=== PATIENT | male | born 1935 | race Caucasian/White ===

== ENCOUNTER → 2017-06-20 | Outpatient (CLI) | payer OTHER ==
[~2017-06-20] MED LIST: ATEN50TA8 PO; CMD5 PO; PRLSR20 PO; ZNTT/150 PO
[2017-06-20 09:46] LABS: BASO % 0.8 %; BASO ABS # 0.04 K/uL (0-0.2); EOS % 4.6 %; EOS ABS # 0.23 K/uL (0-0.5); HEMATOCRIT 41.1 % (42-52); HEMOGLOBIN 13.9 g/dL (14.0-18.0); IG# 0.01 K/uL (0.00-0.02); LYMPH % 33.8 %; LYMPH ABS # 1.69 K/uL (1.2-3.4); MEAN CELL VOLUME 93.2 fL (80-100); MEAN CORPUSCULAR HEMOGLOBIN 31.5 pg (25-34); MEAN CORPUSCULAR HGB CONC 33.8 g/dl (32-36); MEAN PLATELET VOLUME 11.1 fL (7.4-10.4); MONO % 10.6 %; MONO ABS # 0.53 K/uL (0.11-0.59); PLATELET COUNT 147 K/uL (130-400); RED CELL DISTRIBUTION WIDTH CV 12.9 % (11.5-14.5)
[2017-06-20 10:13] LABS: BLOOD UREA NITROGEN 26 mg/dl (7-18); CALCIUM 9.4 mg/dl (8.5-10.1); CARBON DIOXIDE 33 mmol/L (21-32); CHOLESTEROL 189 mg/dl (0-200); CREATININE 1.13 mg/dl (0.60-1.40); GLUCOSE 87 mg/dl (70-99); POTASSIUM 3.7 mmol/L (3.5-5.1); SODIUM 142 mmol/L (136-145)
[2017-06-20 10:23] LABS: LDL CHOLESTEROL CALCULATED 120 mg/dl
== END | disposition home or self-care (01) ==
LOC: C.LAB1850 08:35
PROVIDERS: ATTEND Nurse Practitioner Adult Health
DX: E78.00 Pure hypercholesterolemia, unspecified (principal); I48.91 Unspecified atrial fibrillation; I10 Essential (primary) hypertension; D64.9 Anemia, unspecified; K59.00 Constipation, unspecified

== ENCOUNTER 2022-09-13 09:09 | Inpatient (IN) ==
--- NOTE | 2022-09-13 09:40 | Emergency Department Note ---
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 MEDICAL DECISION MAKING: This is a 86-year-old male who presents to the ED from home where he lives with his brother. He apparently has some chronic mild confusion. The patient's complaint is that of pedal edema. Per the nurse who took report from EMS states that he was sent in for some shortness of breath, increased difficulty getting around and some increasing confusion. No other specific complaints. He was little hypothermic when he came in and a bear hugger was placed by the nursing staff. The patient's exam reveals no distress. Clear lung sounds. Speech is somewhat difficult to understand although does answer appropriately. He does have some pedal edema in his lower extremities that appear to be chronic. No significant pain. No obvious infection. Abdomen soft and nontender. Initial heart rate was 132 with a monitor showing about 120s to 130s with a twelve-lead EKG showing atrial fibrillation. The patient does have a pacemaker. He appears to chronically on warfarin. He is also on atenolol. Initial blood pressure was a little low in the 90 systolic range. Uncertain if he is taking his medication as prescribed. Uncertain if he is eating or drinking well. He states that he lives with his brother, however I spoke with his son and the son states that the patient lives with him. The patient's son was worried about sleeping more than usual, decreased oral intake and a little more confused since starting on a diuretic for his pedal edema. According to the PCP note, it appears the patient has been on the diuretic for at least a month. The BUN is 58 and creatinine is 2.3. This is above his normal baseline. Bilirubin is elevated 6.8. This is also well above his normal baseline around 1.9. Test was negative. Urine does not show obvious infection. Chest x-ray was negative for acute disease. White blood cell count is elevated at 22. Chest x-ray did not show acute process. CT scan of the brain was negative for acute disease. CT scan of the abdomen and pelvis suggest metastatic liver disease into the lungs. The patient and family were told the results. The patient will be seen by the hospitalist for further evaluation and care. He was treated with 2 L normal saline IV. His heart rate remained tachycardic with atrial fibrillation in the 120 range. Family states that he did not take any of his medication today. Saturations are good at 100%. He is afebrile. He was empirically given IV Zosyn for possible infection primarily secondary to the elevated white blood cell count. His abdomen is soft and nontender. The patient was given Lopressor 5 mg IV x2. Will be seen by the hospitalist for further evaluation and care. Triage Nursing notes reviewed. Vital Signs: reviewed Prior /Outside records reviewed: PCP visit from 08/24/2022 shows history of hypertension, high cholesterol, A-fib and lower extremity edema. Per that note, the patient is on warfarin and atenolol. Differential diagnosis: Differential includes dehydration, electrolyte abnormality, infection, pneumonia, CA, arrhythmia, other. Diagnostics, as interpreted by me: 12 lead ECG: Atrial fibrillation at a rate of 121. No ST elevation. No PVCs. Normal QTc. Cardiac Monitoring ordered: Atrial fibrillation in the 120 Medical decision rules: none Imaging studies: Chest x-ray: No acute disease. CT scan of the brain: No intracranial hemorrhage. Procedures: none. Critical care: none. HPI: See MDM above. PAST MEDICAL HISTORY: See Below PAST SURGICAL HISTORY: See Below SOCIAL HISTORY: See Below HOME MEDICATIONS: See Below ALLERGIES: See Below VITALS: See Below PHYSICAL EXAMINATION: See MDM for positive findings otherwise unremarkable. CONSTITUTIONAL/VITAL SIGNS: Reviewed GENERAL:done as appropriate INTEGUMENTARY: done as appropriate HEAD: done as appropriate EYES: done as appropriate RESPIRATORY: done as appropriate CARDIOVASCULAR:done as appropriate GI/ABDOMEN:done as appropriate EXTREMITIES: done as appropriate NEUROLOGICAL: done as appropriate PSYCHIATRIC:done as appropriate MUSCULOSKELETAL:done as appropriate TRIAGE NURSING DOCUMENTATION REVIEWED. Past Med/Surg History Medical History Hip fracture, intertrochanteric (07/09/13) Lipoma of abdominal wall Surgical History S/P cardiac pacemaker procedure S/P inguinal hernia repair Family History Brother Cardiac disorder Mother Hypertension Denies family history of Ovarian cancer Prostate cancer Myocardial infarction Breast cancer Colorectal cancer Social History Smoking Status: Former smoker Hx Alcohol Use: No Hx Substance Use: No Preferred Language: Chilean Communication Ability: Effective Visual Impairment: No Limitations Hearing Ability: Normal Gear Room Keeper Required: No Beliefs That Will Affect Care: None marital status: / Current Living Situation: Alone current occupational status: retired Feels Safe at Home: Yes Childhood Exposure to Second-Hand Smoke: No during the past year weight has: remained stable Dental Care, Regularly: No Physical Activity Frequency: 5-6 Times per Week Physical Activity Frequency Comment: walks almost every day. Seatbelt Use: always Sunscreen Use: No Assistive Devices: None Allergies Allergies Allergy/AdvReac Type Severity Reaction Status Date / Time No Known Allergies Allergy Verified 09/13/22 11:41 Home Meds Home Medications Medication Instructions Recorded Confirmed psyllium husk (with sugar) 3 1 tbsp PO DAILY PRN Constipation 08/24/22 09/13/22 gram/7 gram oral powder (Metamucil (with sugar)) triamterene 37.5 1 tab PO DAILY 08/24/22 09/13/22 mg-hydrochlorothiazide 25 mg tablet latanoprost 0.005 % eye drops 1 drp ophthalmic (eye) HS 09/13/22 09/13/22 Previous Rx's Medication Instructions Recorded atenolol 50 mg tablet 50 mg PO DAILY #90 tabs 05/06/22 apixaban 2.5 mg tablet (Eliquis) 2.5 mg PO BID #180 tabs 09/08/22 Results & Data (ED) Vital Signs Vital Signs - 24 hr 09/13/22 09:36 09/13/22 09:54 09/13/22 09:54 Temperature 35.6 C L Temperature Source Axillary Pulse Rate 132 H 129 H Pulse Rate from SpO2 Sensor Pulse Strength Strong Respiratory Rate 22 Blood Pressure 93/66 L Blood Pressure Mean 75 Blood Pressure Position Lying Pulse Oximetry 100 Oxygen Delivery Method Room Air Room Air Sepsis Recent Fever Within 48 Hours No Sepsis New/Unexplained Change in Mental Status Yes Sepsis Action Taken by Nursing Physician Notified 09/13/22 09:54 09/13/22 09:54 09/13/22 10:32 Temperature Temperature Source Oral Pulse Rate 131 H Pulse Rate from SpO2 Sensor Pulse Strength Respiratory Rate Blood Pressure 113/84 Blood Pressure Mean Blood Pressure Position Pulse Oximetry Oxygen Delivery Method Room Air Sepsis Recent Fever Within 48 Hours Sepsis New/Unexplained Change in Mental Status Sepsis Action Taken by Nursing 09/13/22 09:33 09/13/22 09:49 09/13/22 09:49 Temperature Temperature Source Pulse Rate 124 H 132 H Pulse Rate from SpO2 Sensor Pulse Strength Respiratory Rate 24 23 Blood Pressure 93/66 L Blood Pressure Mean 75 Blood Pressure Position Pulse Oximetry 95 Oxygen Delivery Method Sepsis Recent Fever Within 48 Hours Sepsis New/Unexplained Change in Mental Status Sepsis Action Taken by Nursing 09/13/22 10:00 09/13/22 10:01 09/13/22 10:01 Temperature Temperature Source Pulse Rate 128 H 117 H Pulse Rate from SpO2 Sensor Pulse Strength Respiratory Rate 17 19 Blood Pressure 113/84 Blood Pressure Mean 93 Blood Pressure Position Pulse Oximetry 94 Oxygen Delivery Method Sepsis Recent Fever Within 48 Hours Sepsis New/Unexplained Change in Mental Status Sepsis Action Taken by Nursing 09/13/22 10:30 09/13/22 13:39 09/13/22 10:43 Temperature Temperature Source Pulse Rate 119 H 130 H Pulse Rate from SpO2 Sensor 147 H Pulse Strength Respiratory Rate 17 Blood Pressure 99/56 L Blood Pressure Mean 70 Blood Pressure Position Pulse Oximetry 97 Oxygen Delivery Method Room Air Sepsis Recent Fever Within 48 Hours Sepsis New/Unexplained Change in Mental Status Sepsis Action Taken by Nursing 09/13/22 10:43 09/13/22 11:00 09/13/22 11:01 Temperature Temperature Source Pulse Rate 124 H 126 H Pulse Rate from SpO2 Sensor Pulse Strength Respiratory Rate 19 27 H Blood Pressure 98/65 L Blood Pressure Mean 76 Blood Pressure Position Pulse Oximetry Oxygen Delivery Method Sepsis Recent Fever Within 48 Hours Sepsis New/Unexplained Change in Mental Status Sepsis Action Taken by Nursing 09/13/22 11:01 09/13/22 11:30 09/13/22 11:30 Temperature Temperature Source Pulse Rate 135 H 109 H Pulse Rate from SpO2 Sensor Pulse Strength Respiratory Rate 26 H 20 Blood Pressure 111/74 Blood Pressure Mean 86 Blood Pressure Position Pulse Oximetry Oxygen Delivery Method Sepsis Recent Fever Within 48 Hours Sepsis New/Unexplained Change in Mental Status Sepsis Action Taken by Nursing 09/13/22 12:00 09/13/22 12:00 09/13/22 12:30 Temperature Temperature Source Pulse Rate 116 H 115 H Pulse Rate from SpO2 Sensor Pulse Strength Respiratory Rate 19 25 H Blood Pressure 96/65 L Blood Pressure Mean 75 Blood Pressure Position Pulse Oximetry Oxygen Delivery Method Sepsis Recent Fever Within 48 Hours Sepsis New/Unexplained Change in Mental Status Sepsis Action Taken by Nursing 09/13/22 12:31 09/13/22 12:31 09/13/22 13:00 Temperature Temperature Source Pulse Rate 126 H 117 H Pulse Rate from SpO2 Sensor Pulse Strength Respiratory Rate 19 19 Blood Pressure 89/40 L Blood Pressure Mean 56 Blood Pressure Position Pulse Oximetry Oxygen Delivery Method Sepsis Recent Fever Within 48 Hours Sepsis New/Unexplained Change in Mental Status Sepsis Action Taken by Nursing 09/13/22 13:01 09/13/22 13:01 09/13/22 13:30 Temperature Temperature Source Pulse Rate 121 H 107 H Pulse Rate from SpO2 Sensor Pulse Strength Respiratory Rate 23 23 Blood Pressure 98/72 L Blood Pressure Mean 80 Blood Pressure Position Pulse Oximetry Oxygen Delivery Method Sepsis Recent Fever Within 48 Hours Sepsis New/Unexplained Change in Mental Status Sepsis Action Taken by Nursing 09/13/22 13:31 09/13/22 13:31 Temperature Temperature Source Pulse Rate 110 H Pulse Rate from SpO2 Sensor Pulse Strength Respiratory Rate Blood Pressure 90/60 L Blood Pressure Mean 70 Blood Pressure Position Pulse Oximetry 100 Oxygen Delivery Method Sepsis Recent Fever Within 48 Hours Sepsis New/Unexplained Change in Mental Status Sepsis Action Taken by Nursing Laboratory Data 09/13/22 12:39 09/13/22 10:11 Lab Results 09/13/22 09/13/22 09/13/22 Range/Units 09:31 10:11 10:11 WBC Cancelled RBC Cancelled Hgb Cancelled Hct Cancelled MCV Cancelled MCH Cancelled MCHC Cancelled RDW Std Deviation Cancelled RDW Coeff of Fior Cancelled Plt Count Cancelled MPV Cancelled Immature Gran % (Auto) Cancelled Neut % (Auto) Cancelled Lymph % (Auto) Cancelled Dupage % (Auto) Cancelled Eos % (Auto) Cancelled Baso % (Auto) Cancelled Neut # (Auto) Cancelled Lymph # (Auto) Cancelled Dup[place] # (Auto) Cancelled Eos # (Auto) Cancelled Baso # (Auto) Cancelled Immature Gran # (Auto) Cancelled Absolute Nucleated RBC Cancelled Nucleated RBC % (auto) Cancelled Neutrophils % (Manual) Cancelled Band Neutrophils % Cancelled Lymphocytes % (Manual) Cancelled Prolymphocyte % Cancelled Reactive Lymphs % (Man) Cancelled Monocytes % (Manual) Cancelled Eosinophils % (Manual) Cancelled Basophils % (Manual) Cancelled Metamyelocytes % (Man) Cancelled Myelocytes % (Man) Cancelled Promyelocytes % (Man) Cancelled Blast Cells % (Manual) Cancelled Plasma Cell % (Manual) Cancelled Other Cells % Cancelled Nucleated RBC % Cancelled Neutrophils # (Manual) Cancelled Band Neutrophils # Cancelled Total Absolute Neuts Cancelled Lymphocytes # (Manual) Cancelled Prolymphocyte # Cancelled Reactive Lymphs # Cancelled Total Abs Lymphocytes Cancelled Monocytes # (Manual) Cancelled Eosinophils # (Manual) Cancelled Basophils # (Manual) Cancelled Metamyelocytes # (Man) Cancelled Myelocytes # (Manual) Cancelled Promyelocytes # (Man) Cancelled Blast Cells # (Man) Cancelled Plasma Cell # (Manual) Cancelled Other Cells # Cancelled Nucleated RBCs # (Man) Cancelled Hypersegmented Neuts Cancelled Hyposegmented Neuts Cancelled Hypogranular Neuts Cancelled Large Granular Lymphs Cancelled # Lrg Granular Lymphs Cancelled Hairy Cells Cancelled Smudge Cells Cancelled Toxic Granulation Cancelled Toxic Vacuolation Cancelled Dohle Bodies Cancelled Mandeep Rods Cancelled Platelet Estimate Cancelled Hypogranular Platelets Cancelled Giant Platelets Cancelled Platelet Satelliting Cancelled RBC Morphology Cancelled Polychromasia Cancelled Hypochromasia Cancelled Poikilocytosis Cancelled Basophilic Stippling Cancelled Anisocytosis Cancelled Microcytosis Cancelled Macrocytosis Cancelled Spherocytes Cancelled Pappenheimer Bodies Cancelled Sickle Cells Cancelled Target Cells Cancelled Tear Drop Cells Cancelled Ovalocytes Cancelled Stomatocytes Cancelled Hoff-Hartselle Bodies Cancelled Echinocytes Cancelled Acanthocytes (Spur) Cancelled Rouleaux Cancelled RBC Agglutinates Cancelled Schistocytes Cancelled Sezary Cell Cancelled Sodium 131 L (136-145) mmol/L Potassium 5.0 (3.5-5.1) mmol/L Chloride 96 L (98-107) mmol/L Carbon Dioxide 22 (21-32) mmol/L Anion Gap 13 H (3-11) BUN 58 H (6-23) mg/dl Creatinine 2.30 H (0.6-1.4) mg/dl Est Cr Clr Drug Dosing Not Reportable Est GFR ( Amer) 29.1 ml/min Est GFR (Non-Af Amer) 25.1 ml/min BUN/Creatinine Ratio 25.2 H (10-20) Glucose 100 H (70-99(Fasting)) mg/dl Calcium 8.4 L (8.6-10.3) mg/dl Total Bilirubin 6.8 H (0.2-1.0) mg/dl AST 70 H (13-39) U/L ALT 50 (7-52) U/L Alkaline Phosphatase 557 H (34-104) U/L Total Creatine Kinase 67 (30-223) U/L Troponin I High Sens 46.6 H (0-20) pg/ml Total Protein 6.6 (6.0-8.3) gm/dl Albumin 2.6 L (3.4-5.0) gm/dl Globulin 4.0 (2.5-4.0) gm/dl Albumin/Globulin Ratio 0.7 L (0.9-2) Procalcitonin (0-0.5) ng/ml TSH 3.457 (0.300-4.500) uIu/ml Urine Color Urine Appearance (Clear) Urine pH (4.5-7.5) Ur Specific Buchanan (1.000-1.030) Urine Protein (Negative) Urine Glucose (UA) (Negative) Urine Ketones (Negative) Urine Blood (Negative) Urine Nitrite (Negative) Urine Bilirubin (Negative) Urine Urobilinogen (Negative) Ur Leukocyte Esterase (Negative) Urine RBC (0-4) /hpf Urine WBC (0-5) /hpf Ur Epithelial Cells (0-5) /lpf Urine Bacteria (Negative) Hyaline Casts (0-5) /lpf SARS-CoV-2, RNA, NAAT (NEGATIVE) Blood Parasites ID Cancelled 09/13/22 09/13/22 09/13/22 Range/Units 10:11 10:30 10:30 WBC RBC Hgb Hct MCV MCH MCHC RDW Std Deviation RDW Coeff of Fior Plt Count MPV Immature Gran % (Auto) Neut % (Auto) Lymph % (Auto) Dupage % (Auto) Eos % (Auto) Baso % (Auto) Neut # (Auto) Lymph # (Auto) Dup[place] # (Auto) Eos # (Auto) Baso # (Auto) Immature Gran # (Auto) Absolute Nucleated RBC Nucleated RBC % (auto) Neutrophils % (Manual) Band Neutrophils % Lymphocytes % (Manual) Prolymphocyte % Reactive Lymphs % (Man) Monocytes % (Manual) Eosinophils % (Manual) Basophils % (Manual) Metamyelocytes % (Man) Myelocytes % (Man) Promyelocytes % (Man) Blast Cells % (Manual) Plasma Cell % (Manual) Other Cells % Nucleated RBC % Neutrophils # (Manual) Band Neutrophils # Total Absolute Neuts Lymphocytes # (Manual) Prolymphocyte # Reactive Lymphs # Total Abs Lymphocytes Monocytes # (Manual) Eosinophils # (Manual) Basophils # (Manual) Metamyelocytes # (Man) Myelocytes # (Manual) Promyelocytes # (Man) Blast Cells # (Man) Plasma Cell # (Manual) Other Cells # Nucleated RBCs # (Man) Hypersegmented Neuts Hyposegmented Neuts Hypogranular Neuts Large Granular Lymphs # Lrg Granular Lymphs Hairy Cells Smudge Cells Toxic Granulation Toxic Vacuolation Dohle Bodies Mandeep Rods Platelet Estimate Hypogranular Platelets Giant Platelets Platelet Satelliting RBC Morphology Polychromasia Hypochromasia Poikilocytosis Basophilic Stippling Anisocytosis Microcytosis Macrocytosis Spherocytes Pappenheimer Bodies Sickle Cells Target Cells Tear Drop Cells Ovalocytes Stomatocytes Hoff-Hartselle Bodies Echinocytes Acanthocytes (Spur) Rouleaux RBC Agglutinates Schistocytes Sezary Cell Sodium (136-145) mmol/L Potassium (3.5-5.1) mmol/L Chloride (98-107) mmol/L Carbon Dioxide (21-32) mmol/L Anion Gap (3-11) BUN (6-23) mg/dl Creatinine (0.6-1.4) mg/dl Est Cr Clr Drug Dosing Est GFR ( Amer) ml/min Est GFR (Non-Af Amer) ml/min BUN/Creatinine Ratio (10-20) Glucose (70-99(Fasting)) mg/dl Calcium (8.6-10.3) mg/dl Total Bilirubin (0.2-1.0) mg/dl AST (13-39) U/L ALT (7-52) U/L Alkaline Phosphatase (34-104) U/L Total Creatine Kinase (30-223) U/L Troponin I High Sens (0-20) pg/ml Total Protein (6.0-8.3) gm/dl Albumin (3.4-5.0) gm/dl Globulin (2.5-4.0) gm/dl Albumin/Globulin Ratio (0.9-2) Procalcitonin 4.19 H (0-0.5) ng/ml TSH (0.300-4.500) uIu/ml Urine Color Liyah Urine Appearance Clear (Clear) Urine pH 5.5 (4.5-7.5) Ur Specific Buchanan 1.020 (1.000-1.030) Urine Protein 2+ H (Negative) Urine Glucose (UA) Negative (Negative) Urine Ketones Negative (Negative) Urine Blood 1+ H (Negative) Urine Nitrite Negative (Negative) Urine Bilirubin 1+ H (Negative) Urine Urobilinogen Positive H (Negative) Ur Leukocyte Esterase Negative (Negative) Urine RBC 5-10 H (0-4) /hpf Urine WBC 0-5 (0-5) /hpf Ur Epithelial Cells 0-5 (0-5) /lpf Urine Bacteria 1+ H (Negative) Hyaline Casts 5-10 H (0-5) /lpf SARS-CoV-2, RNA, NAAT NEGATIVE (NEGATIVE) Blood Parasites ID 09/13/22 Range/Units 12:39 WBC 22.43 H RBC 5.62 Hgb 14.8 Hct 47.2 MCV 84.0 MCH 26.3 MCHC 31.4 L RDW Std Deviation 68.3 H RDW Coeff of Fior 23.7 H Plt Count 136 MPV 11.9 Immature Gran % (Auto) 1.2 Neut % (Auto) 70.9 Lymph % (Auto) 18.5 Dupage % (Auto) 8.2 Eos % (Auto) 0.6 Baso % (Auto) 0.6 Neut # (Auto) 15.91 H Lymph # (Auto) 4.15 H Dupage # (Auto) 1.84 H Eos # (Auto) 0.13 Baso # (Auto) 0.14 Immature Gran # (Auto) 0.26 H Absolute Nucleated RBC 0.02 Nucleated RBC % (auto) 0.1 Neutrophils % (Manual) Band Neutrophils % Lymphocytes % (Manual) Prolymphocyte % Reactive Lymphs % (Man) Monocytes % (Manual) Eosinophils % (Manual) Basophils % (Manual) Metamyelocytes % (Man) Myelocytes % (Man) Promyelocytes % (Man) Blast Cells % (Manual) Plasma Cell % (Manual) Other Cells % Nucleated RBC % Neutrophils # (Manual) Band Neutrophils # Total Absolute Neuts Lymphocytes # (Manual) Prolymphocyte # Reactive Lymphs # Total Abs Lymphocytes Monocytes # (Manual) Eosinophils # (Manual) Basophils # (Manual) Metamyelocytes # (Man) Myelocytes # (Manual) Promyelocytes # (Man) Blast Cells # (Man) Plasma Cell # (Manual) Other Cells # Nucleated RBCs # (Man) Hypersegmented Neuts Hyposegmented Neuts Hypogranular Neuts Large Granular Lymphs # Lrg Granular Lymphs Hairy Cells Smudge Cells Toxic Granulation Toxic Vacuolation Dohle Bodies Mandeep Rods Platelet Estimate Hypogranular Platelets Giant Platelets Platelet Satelliting RBC Morphology Polychromasia Hypochromasia Poikilocytosis Basophilic Stippling Anisocytosis Microcytosis Macrocytosis Spherocytes Pappenheimer Bodies Sickle Cells Target Cells Tear Drop Cells Ovalocytes Stomatocytes Hoff-Hartselle Bodies Echinocytes Acanthocytes (Spur) Rouleaux RBC Agglutinates Schistocytes Sezary Cell Sodium (136-145) mmol/L Potassium (3.5-5.1) mmol/L Chloride (98-107) mmol/L Carbon Dioxide (21-32) mmol/L Anion Gap (3-11) BUN (6-23) mg/dl Creatinine (0.6-1.4) mg/dl Est Cr Clr Drug Dosing Est GFR ( Amer) ml/min Est GFR (Non-Af Amer) ml/min BUN/Creatinine Ratio (10-20) Glucose (70-99(Fasting)) mg/dl Calcium (8.6-10.3) mg/dl Total Bilirubin (0.2-1.0) mg/dl AST (13-39) U/L ALT (7-52) U/L Alkaline Phosphatase (34-104) U/L Total Creatine Kinase (30-223) U/L Troponin I High Sens (0-20) pg/ml Total Protein (6.0-8.3) gm/dl Albumin (3.4-5.0) gm/dl Globulin (2.5-4.0) gm/dl Albumin/Globulin Ratio (0.9-2) Procalcitonin (0-0.5) ng/ml TSH (0.300-4.500) uIu/ml Urine Color Urine Appearance (Clear) Urine pH (4.5-7.5) Ur Specific Buchanan (1.000-1.030) Urine Protein (Negative) Urine Glucose (UA) (Negative) Urine Ketones (Negative) Urine Blood (Negative) Urine Nitrite (Negative) Urine Bilirubin (Negative) Urine Urobilinogen (Negative) Ur Leukocyte Esterase (Negative) Urine RBC (0-4) /hpf Urine WBC (0-5) /hpf Ur Epithelial Cells (0-5) /lpf Urine Bacteria (Negative) Hyaline Casts (0-5) /lpf SARS-CoV-2, RNA, NAAT (NEGATIVE) Blood Parasites ID Administered Medications Discontinued Medications Sodium Chloride (Nss 1000ml) 1,000 mls @ 999 mls/hr IV .Q1H1M RACHEL Stop: 09/13/22 10:45 Last Infusion: 09/13/22 10:51 Dose: 0 mls/hr Documented By: Admin: 09/13/22 09:50 Dose: 999 mls/hr Documented By: AMY Metoprolol Tartrate (Metoprolol Tartrate 1 Mg/Ml Vial) 5 mg IV NOW STA Stop: 09/13/22 09:51 Last Admin: 09/13/22 10:32 Dose: 5 mg Documented By: AMY Imaging Data Radiologist's Impression: Chest X-Ray 09/13/22 09:37 SINGLE VIEW CHEST CLINICAL HISTORY: Generalized weakness. FINDINGS: 2 AP, portable, upright chest radiographs are compared to study dated 01/10/2022. The examination is degraded by portable technique and patient rotation . A 2-lead cardiac pacemaker is unchanged in position. The heart is enlarged noting atherosclerotic calcification of the thoracic aorta. The pulmonary vasculature is noncongested. Chronic interstitial thickening is similar to previous. A 12 mm nodular density projects over the right lower lung. No a irspace consolidation or large pleural effusion is identified. No pneumothorax is seen. The skeletal structures are osteopenic. The bony thorax is grossly intact. IMPRESSION: 1. Cardiomegaly and cardiac pacemaker without radiographic evidence of co ngestive failure. 2. No airspace consolidation or large pleural effusion is identified. 3. A 12 mm nodular density projects over the right lower lung. This is pathologically indeterminate and may be artifactual. Follow-up with a dedicated PA and lateral examination is recommended for reevaluation. ACT 112: Positive. There are findings on this exam that require communication between the performing entity and the patient following Patient Test Result Information Act ([place] Act 112) guidelines. Electronically signed by: Patricio Reina M.D. 09/13/2022 11:36 AM Abdomen/Pelvis CT 09/13/22 12:28 CT abd pelvis wo con CLINICAL HISTORY: elev bilirubin TECHNIQUE: Helical axial images of the abdomen and pelvis were obtained. Automated dose lowering techniques and/or adjustment according to patient size were utilized for this exam. This exam was performed without intravenous contrast. COMPARISON: None available at the time of this dictation. FINDINGS: Lower chest: Numerous pulmonary nodules are seen in the lower lobes bilateral ly. Prominent nodules include a 7 mm nodule in the lingula (series 5 image 2), 12 mm nodule in the right middle lobe (image 15), and a millimeter nodule in the right middle lobe (image 5 and 70). Liver: Ill-defined hypodensities are seen in the liver, evaluation is limited by noncontrast technique, findings are concerning for metastases. Gallbladder and biliary tree: No calcified gallstones. Normal caliber wall. No intra- or extrahepatic biliary ductal dilation. Pancreas: Unremarkable, no focal lesions. Spleen: Unremarkable. Adrenals: Unremarkable. Kidneys and ureters: Bilateral renal cysts are seen. Nonobstructive stones are seen in the bilateral kidneys. Bladder: Choe catheter is seen. Reproductive organs: Unremarkable. Bowel: The appendix is normal. Lymph nodes Retroperitoneal: Unremarkable. Pelvic: Unremarkable. Mesenteric: Unremarkable. Peritoneum: Moderate pelvic free fluid is seen, nonspecific. Vessels: Atherosclerotic calcifications are seen. 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 The aorta is tortuous. Abdominal wall: Tiny right inguinal hernia. Bones: Degenerative changes in the visualized spine. Chronic changes are seen in the ribs. Bilateral femoral neck hardware is seen. IMPRESSION: No acute abnormality is seen. There are numerous pulmonary nodules and suggestion of hepatic hypodensities concerning for metastatic disease with unknown primary. Clinical correlation is recommended. ACT 112: Negative or not required by law. Electronically signed by: Basilio Ken M.D. 09/13/2022 1:[address] 09/13/22 12:28 CT head/brain wo con CLINICAL HISTORY: 86 years-old Male with confusion. Acutely altered mental status TECHNIQUE: Multiple axial CT images of the head were obtained without contrast. A dose lowering technique was utilized adhering to the principles of ALARA. CT DOSE: 1047.79 mGy.cm COMPARISON: None. FINDINGS: No acute intracranial hemorrhage, midline shift, intracranial mass, hyd rocephalus, territorial ischemia or abnormal extra-axial collection. Motion degraded exam. Involutional changes with white matter hypodensities suggestive of chronic microvascular ischemic disease. Calcifications of the falx cerebri. 6 mm hypodense focus of the left lentiform nucleus on image 20 series 2. The calvarium is intact. The paranasal sinuses, mastoid air cells, and middle ear cavities are clear. IMPRESSION: No acute intracranial abnormality. ACT 112: Negative or not required by law. The above report was generated using voice recognition software. It may contain grammatical, syntax or spelling errors. Electronically signed by: Андрей Reynoso M.D. 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 triamterene-hydrochlorothiazid 37.5-25 mg tablet 1 tab PO DAILY Rx Instructions: 09/04/22. Take 1 tablet by mouth until swelling resolves, then take 1 tablet by mouth daily as needed for swelling. Eliquis 2.5 mg tablet 2.5 mg PO BID Qty: 180 3RF latanoprost 0.005 % drops 1 drp ophthalmic (eye) HS Referrals Referrals: Fadia Connelly CRNP [Primary Care Provider] -
[2022-09-13] MEDS ORDERED: SODIUM CHLORIDE 0.9% 1000ML 1,000 ML IV SCH (09:45)
[2022-09-13] MEDS ORDERED: METOPROLOL TARTRATE 1 MG/ML VIAL IV STA ×2 (09:50→13:38)
[2022-09-13 10:50] LABS: Alanine Aminotransferase 50 U/L (7-52); Albumin Globulin Ratio 0.7 (0.9-2); Albumin Level 2.6 gm/dl (3.4-5.0); Alkaline Phosphatase 557 U/L (34-104); Anion Gap 13 (3-11); Aspartate Aminotransferase 70 U/L (13-39); BUN Creatinine Ratio 25.2 (10-20); Bilirubin,Total 6.8 mg/dl (0.2-1.0); Blood Urea Nitrogen 58 mg/dl (6-23); Calcium 8.4 mg/dl (8.6-10.3); Carbon Dioxide 22 mmol/L (21-32); Chloride 96 mmol/L (98-107); Creatine Kinase 67 U/L (30-223); Est GFR (African American) 29.1 ml/min; Est GFR (Non-African American) 25.1 ml/min; Glucose 100 mg/dl (70-99(Fasting)); Sodium 131 mmol/L (136-145); Total Protein 6.6 gm/dl (6.0-8.3)
[2022-09-13 10:53] LABS: Troponin I High Sensitivity 46.6 pg/ml (0-20)
[2022-09-13 10:59] LABS: Appearance Urine Clear (Clear); Bilirubin Urine 1+ (Negative); Blood Urine 1+ (Negative); Color Urine Amber; Glucose Urine UA Negative (Negative); Ketones Urine Negative (Negative); Leukocyte Esterase Urine Negative (Negative); Nitrite Urine Negative (Negative); Protein Urine 2+ (Negative); Urobilinogen Urine Positive (Negative); pH Urine 5.5 (4.5-7.5)
[2022-09-13 11:14] LABS: Epithelial Cell Urine 0-5 /lpf (0-5); WBC Urine 0-5 /hpf (0-5)
[2022-09-13 11:15] LABS: Bacteria Urine 1+ (Negative)
--- NOTE | 2022-09-13 11:38 | XRay Report ---
SINGLE VIEW CHEST CLINICAL HISTORY: Generalized weakness. FINDINGS: 2 AP, portable, upright chest radiographs are compared to study dated 01/10/2022. The examina tion is degraded by portable technique and patient rotation. A 2-lead cardiac pacemaker is unchanged in position. The heart is enlarged noting atherosclerotic calcification of the thoracic aorta. The pu lmonary vasculature is noncongested. Chronic interstitial thickening is similar to previous. A 12 mm nodular density projects over the right lower lung. No airspace consolidation or large pleural effusi on is identified. No pneumothorax is seen. The skeletal structures are osteopenic. The bony thorax is grossly intact. IMPRESSION: 1. Cardiomegaly and cardiac pacemaker without radiographic evidence of congestive failure. 2. No airspace consolidation or large pleural effusion is identified. 3. A 12 mm nodular density projects over the right lower lung. This is pathologically indeterminate a nd may be artifactual. Follow-up with a dedicated PA and lateral examination is recommended for reeva luation. ACT 112: Positive. There are findings on this exam that require communication between the performing entity and the patient following Patient Test Result Information Act ([place] Act 112) guidelines. Electronically signed by: Patricio Reina M.D. 09/13/2022 11:36 AM
[2022-09-13 13:21] LABS: Basophils # (auto) 0.14 K/uL (0-0.2); Basophils % (auto) 0.6 %; Eosinophils # (auto) 0.13 K/uL (0-0.50); Eosinophils % (auto) 0.6 %; Hematocrit (blood only) 47.2 % (42.0-52.0); Hemoglobin 14.8 g/dl (14.0-18.0); Immature Granulocytes # (auto) 0.26 K/uL (0.01-0.20); Immature Granulocytes % (auto) 1.2 %; Lymphocytes # (auto) 4.15 K/uL (1.2-3.4); Lymphocytes % (auto) 18.5 %; Mean Corpuscular Hemoglobin 26.3 pg (25.0-34.0); Mean Corpuscular Hgb Conc 31.4 g/dL (32.0-36.0); Mean Platelet Volume 11.9 fL (9.4-12.4); Monocytes # (auto) 1.84 K/uL (0.11-0.59); Monocytes % (auto) 8.2 %; Neutrophils # (auto) 15.91 K/uL (1.40-6.50); Neutrophils % (auto) 70.9 %; Nucleated RBC # (auto) 0.02 K/uL (0-0.12); Nucleated RBC % (auto) 0.1 %; Platelet Count 136 K/uL (130-400); RDW Coefficient of Variation 23.7 % (11.5-14.5); RDW Standard Deviation 68.3 fL (36.4-46.3); Red Blood Count 5.62 M/uL (4.70-6.10); White Blood Count 22.43 K/ul (4.8-10.8)
--- NOTE | 2022-09-13 13:29 | CT Scan Report ---
CT head/brain wo con CLINICAL HISTORY: 86 years-old Male with confusion. Acutely altered mental status TECHNIQUE: Multiple axial CT images of the head were obtained without contrast. A dose lowering tech nique was utilized adhering to the principles of ALARA. CT DOSE: 1047.79 mGy.cm COMPARISON: None. FINDINGS: No acute intracranial hemorrhage, midline shift, intracranial mass, hydrocephalus, territorial ischem ia or abnormal extra-axial collection. Motion degraded exam. Involutional changes with white matter h ypodensities suggestive of chronic microvascular ischemic disease. Calcifications of the falx cerebri . 6 mm hypodense focus of the left lentiform nucleus on image 20 series 2. The calvarium is intact. The paranasal sinuses, mastoid air cells, and middle ear cavities are clear . IMPRESSION: No acute intracranial abnormality. ACT 112: Negative or not required by law. The above report was generated using voice recognition software. It may contain grammatical, syntax o r spelling errors. Electronically signed by: Андрей Reynoso M.D. 09/13/2022 1:27 PM
--- NOTE | 2022-09-13 13:34 | CT Scan Report ---
CT abd pelvis wo con CLINICAL HISTORY: elev bilirubin TECHNIQUE: Helical axial images of the abdomen and pelvis were obtained. Automated dose lowering tech niques and/or adjustment according to patient size were utilized for this exam. This exam was perfor med without intravenous contrast. COMPARISON: None available at the time of this dictation. FINDINGS: Lower chest: Numerous pulmonary nodules are seen in the lower lobes bilaterally. Prominent nodules i nclude a 7 mm nodule in the lingula (series 5 image 2), 12 mm nodule in the right middle lobe (image 15), and a millimeter nodule in the right middle lobe (image 5 and 70). Liver: Ill-defined hypodensities are seen in the liver, evaluation is limited by noncontrast techniqu e, findings are concerning for metastases. Gallbladder and biliary tree: No calcified gallstones. Normal caliber wall. No intra- or extrahepatic biliary ductal dilation. Pancreas: Unremarkable, no focal lesions. Spleen: Unremarkable. Adrenals: Unremarkable. Kidneys and ureters: Bilateral renal cysts are seen. Nonobstructive stones are seen in the bilateral kidneys. Bladder: Choe catheter is seen. Reproductive organs: Unremarkable. Bowel: The appendix is normal. Lymph nodes Retroperitoneal: Unremarkable. Pelvic: Unremarkable. Mesenteric: Unremarkable. Peritoneum: Moderate pelvic free fluid is seen, nonspecific. Vessels: Atherosclerotic calcifications are seen. Aneurysmal dilation of the right common iliac arter y measuring 26 mm. The aorta is tortuous. Abdominal wall: Tiny right inguinal hernia. Bones: Degenerative changes in the visualized spine. Chronic changes are seen in the ribs. Bilateral femoral neck hardware is seen. IMPRESSION: No acute abnormality is seen. There are numerous pulmonary nodules and suggestion of hepatic hypodens ities concerning for metastatic disease with unknown primary. Clinical correlation is recommended. ACT 112: Negative or not required by law. Electronically signed by: Basilio Ken M.D. 09/13/2022 1:33 PM
[2022-09-13] MEDS ORDERED: SODIUM CHLORIDE 0.9% 1000ML 1,000 ML IV ONE (13:38)
[2022-09-13] MEDS ORDERED: PIPERACILLIN/TAZOBACTAM 4.5 GM/120 ML BAG IV ONE (13:38)
--- NOTE | 2022-09-13 14:00 | History & Physical Report ---
Date of Service September 13, 2022 Assessment & Plan (1) Goals of care, counseling/discussion: Plan: Tried discussing resuscitation status with the patient and unable to understand, weight up or come to a decision at this time therefore does not have capacity to make this decision. Per son and daughter at bedside he does not have a formal power of trade mark attorney. His is . Next of kin are his four children - Efraín, Brittney, Roxana and Juvencio. Efraín and Brittney will discuss code status with other family. Will consult palliative care to aid in these discussions. Roxana is listed as primary contact although reportedly no longer involved in his care. Efraín (son, primary healthcare receptionist) can be reached on [phone]. Brittney (daughter) can be reached on [phone]. (2) SIRS (systemic inflammatory response syndrome): Plan: Elevated WBC with dehydration but given severely immunosuppressed and malnourished state will cover with IV Zosyn until blood cultures are negative at 48 hours This is not sepsis due to lack of source. (3) Acute kidney injury: Plan: Despite total body volume water elevated he is third spacing from malnutrition/cancer he exams intravascularly deplete with CHRISTIANO suspect from recent increase in diuretics. NSS 2L bolus given on admission. Will continue on LR @ 100 ml/hr for 3L. Monitor BMP in AM (4) Metastatic malignant neoplasm of unknown primary site: Plan: New diagnosis. Discussed with Efraín (son) and Brittney (daughter) at bedside who will make other family members aware. Consult palliative care to aid in discussions regarding goals of care moving forward as unclear if he would really want anything done especially in his current nutritional state. (5) Pedal edema: Plan: Significantly enlarged left compared to right leg - will get US venous doppler to r/o DVT (6) A-fib: Plan: Permanent Suspect his current rate is relatively appropriate for his intravascular depletion, this is on atenolol that he took this morning. Likely will need some metoprolol as the atenolol wears off in the next 24 - 48 hours. Would favor metoprolol over atenolol due to his hypotension. Anticoagulation on hold in case decision for biopsy pending US venous doppler (7) Elevated bilirubin: Plan: No biliary dilatation on CT to suggest obstructive cause. Suspect due to metastatic disease. (8) CAD (coronary artery disease): (9) Altered mental state: Plan: CT head negative for intracranial pathology Suspect secondary to possible infection +/- ca. +/- uremia (10) Severe protein-calorie malnutrition: Plan: Once more alert consider body liner evaluation Plan VTE Prophylaxis - pending US venous doppler Diet - clear liquid, low Na Disposition - admit to PCU Admission and Anticipated Discharge Date Admission Date: September 13, 2022 History of Present Illness Chief Complaint: Generalized weakness and altered mental state Primary Care Provider: REID Plunkett Sean Malik is an 86 year old male who presents to the ER with generalized weakness and altered mental state. Unable o get any history from patient. History obtain from son (Efraín) and daughter (Brittney) at bedside. They report a gradual decline in mental status and weakness to the point he could not get up today with generalized weakness. They deny any facial droop, one sided weakness. His speech has become more difficult to understand but this has come with some generalized confusion. They report he recently was started on a water pill for te last two weeks and he has declined since starting that however it appears he was taking this from August 09 (or at least this is when it was picked up from the pharmacy. This was started for pedal edema suspected secondary to heart failure. He is not eating or drinking. No choking or coughing after eating. Allergies Allergy/AdvReac Type Severity Reaction Status Date / Time No Known Allergies Allergy Verified 09/13/22 11:41 Home Medications Medication Instructions Recorded Confirmed Type atenolol 50 mg tablet 50 mg PO DAILY #90 tabs 05/06/22 09/13/22 Rx psyllium husk (with sugar) 3 1 tbsp PO DAILY PRN Constipation 08/24/22 09/13/22 History gram/7 gram oral powder (Metamucil (with sugar)) triamterene 37.5 1 tab PO DAILY 08/24/22 09/13/22 History mg-hydrochlorothiazide 25 mg tablet apixaban 2.5 mg tablet (Eliquis) 2.5 mg PO BID #180 tabs 09/08/22 09/13/22 Rx latanoprost 0.005 % eye drops 1 drp ophthalmic (eye) HS 09/13/22 09/13/22 History Past Med/Surg History Medical History Hip fracture, intertrochanteric (07/09/13) Lipoma of abdominal wall Surgical History S/P cardiac pacemaker procedure S/P inguinal hernia repair Family History Brother Cardiac disorder Mother Hypertension Denies family history of Ovarian cancer Prostate cancer Myocardial infarction Breast cancer Colorectal cancer Social History Smoking Status: Former smoker Cigarettes Per Day: 40 years; Hx Alcohol Use: No Hx Substance Use: No Preferred Language: Hungarian Communication Ability: Effective Visual Impairment: No Limitations Hearing Ability: Normal [employer] Operations Officer Required: No Beliefs That Will Affect Care: None marital status: / Current Living Situation: Family current occupational status: retired Other Information That Helps Us Care for You: No Feels Safe at Home: Yes Safety Concerns: Feels Safe At This Time Childhood Exposure to Second-Hand Smoke: No during the past year weight has: remained stable Dental Care, Regularly: No Physical Activity Frequency: 5-6 Times per Week Physical Activity Frequency Comment: walks almost every day. Seatbelt Use: always Sunscreen Use: No Assistive Devices: Denture - Upper Review of Systems Review of Systems: Unobtainable due to cognitive status Physical Exam Constitutional: + ill appearing, + cachectic, + frail appearing and + malnourished; no acute distress Eyes: PERRL, conjunctivae normal, anicteric sclerae Respiratory: normal respiratory effort, lungs clear to auscultation Cardiovascular: Rate/Rhythm: + tachycardic and + irregularly irregular Heart Sounds: no murmur Extremities: normal capillary refill and + pedal edema (L 3+, R 2+); no calf tenderness Left calf circumference > 2cm difference with right Gastrointestinal (Abdomen): normal bowel sounds, soft, nontender, no hepatosplenomegaly Skin: no rashes, warm and dry Neurologic: moves all extremities (unable to follow direction for full neurological exam), awake and + confused Psychiatric: Orientation: alert; + not oriented x 3 Thought Process: + word salad Results & Data Results & Data Vital Signs (Past 12 Hours) Vital Signs Temp Pulse Resp BP Pulse Ox O2 Del Method 04/11/23 13:31 110 H 100 09/13/22 13:31 90/60 L 09/13/22 13:30 107 H 23 09/13/22 13:01 121 H 23 09/13/22 13:01 98/72 L 09/13/22 13:00 117 H 19 09/13/22 12:31 126 H 19 09/13/22 12:31 89/40 L 09/13/22 12:30 115 H 25 H 09/13/22 12:00 116 H 19 09/13/22 12:00 96/65 L 09/13/22 11:30 109 H 20 09/13/22 11:30 111/74 09/13/22 11:01 135 H 26 H 09/13/22 11:01 98/65 L 09/13/22 11:00 126 H 27 H 09/13/22 10:43 124 H 19 09/13/22 10:43 99/56 L 09/13/22 13:39 130 H 09/13/22 10:30 119 H 17 97 Room Air 09/13/22 10:01 117 H 19 94 09/13/22 10:01 113/84 09/13/22 10:00 128 H 17 09/13/22 09:49 132 H 23 95 09/13/22 09:49 93/66 L 09/13/22 09:33 124 H 24 09/13/22 10:32 131 H 113/84 09/13/22 09:54 Room Air 09/13/22 09:54 Room Air 09/13/22 09:54 35.6 C L 129 H 22 93/66 L 100 Room Air 09/13/22 09:36 132 H Laboratory Results Abnormal lab results 09/13/22 09/13/22 09/13/22 Range/Units 10:11 10:11 10:30 WBC (4.8-10.8) K/ul MCHC (32.0-36.0) g/dL RDW Std Deviation (36.4-46.3) fL RDW Coeff of Fior (11.5-14.5) % Neut # (Auto) (1.40-6.50) K/uL Lymph # (Auto) (1.2-3.4) K/uL Isabella # (Auto) (0.11-0.59) K/uL Immature Gran # (Auto) (0.01-0.20) K/uL Sodium 131 L (136-145) mmol/L Chloride 96 L (98-107) mmol/L Anion Gap 13 H (3-11) BUN 58 H (6-23) mg/dl Creatinine 2.30 H (0.6-1.4) mg/dl BUN/Creatinine Ratio 25.2 H (10-20) Glucose 100 H (70-99(Fasting)) mg/dl Calcium 8.4 L (8.6-10.3) mg/dl Total Bilirubin 6.8 H (0.2-1.0) mg/dl AST 70 H (13-39) U/L Alkaline Phosphatase 557 H (34-104) U/L Troponin I High Sens 46.6 H (0-20) pg/ml Albumin 2.6 L (3.4-5.0) gm/dl Albumin/Globulin Ratio 0.7 L (0.9-2) Procalcitonin 4.19 H (0-0.5) ng/ml Urine Protein 2+ H (Negative) Urine Blood 1+ H (Negative) Urine Bilirubin 1+ H (Negative) Urine Urobilinogen Positive H (Negative) Urine RBC 5-10 H (0-4) /hpf Urine Bacteria 1+ H (Negative) Hyaline Casts 5-10 H (0-5) /lpf 09/13/22 Range/Units 12:39 WBC 22.43 H (4.8-10.8) K/ul MCHC 31.4 L (32.0-36.0) g/dL RDW Std Deviation 68.3 H (36.4-46.3) fL RDW Coeff of Fior 23.7 H (11.5-14.5) % Neut # (Auto) 15.91 H (1.40-6.50) K/uL Lymph # (Auto) 4.15 H (1.2-3.4) K/uL Isabella # (Auto) 1.84 H (0.11-0.59) K/uL Immature Gran # (Auto) 0.26 H (0.01-0.20) K/uL Sodium (136-145) mmol/L Chloride (98-107) mmol/L Anion Gap (3-11) BUN (6-23) mg/dl Creatinine (0.6-1.4) mg/dl BUN/Creatinine Ratio (10-20) Glucose (70-99(Fasting)) mg/dl Calcium (8.6-10.3) mg/dl Total Bilirubin (0.2-1.0) mg/dl AST (13-39) U/L Alkaline Phosphatase (34-104) U/L Troponin I High Sens (0-20) pg/ml Albumin (3.4-5.0) gm/dl Albumin/Globulin Ratio (0.9-2) Procalcitonin (0-0.5) ng/ml Urine Protein (Negative) Urine Blood (Negative) Urine Bilirubin (Negative) Urine Urobilinogen (Negative) Urine RBC (0-4) /hpf Urine Bacteria (Negative) Hyaline Casts (0-5) /lpf Diagnostic Findings CT head/brain wo con CLINICAL HISTORY: 86 years-old Male with confusion. Acutely altered mental status TECHNIQUE: Multiple axial CT images of the head were obtained without contrast. A dose lowering technique was utilized adhering to the principles of ALARA. CT DOSE: 1047.79 mGy.cm COMPARISON: None. FINDINGS: No acute intracranial hemorrhage, midline shift, intracranial mass, hydrocephalus, territorial ischemia or abnormal extra-axial collection. Motion degraded exam. Involutional changes with white matter hypodensities suggestive of chronic microvascular ischemic disease. Calcifications of the falx cerebri. 6 mm hypodense focus of the left lentiform nucleus on image 20 series 2. The calvarium is intact. The paranasal sinuses, mastoid air cells, and middle ear cavities are clear. IMPRESSION: No acute intracranial abnormality. SINGLE VIEW CHEST CLINICAL HISTORY: Generalized weakness. FINDINGS: 2 AP, portable, upright chest radiographs are compared to study dated 01/10/2022. The examination is degraded by portable technique and patient rotation. A 2-lead cardiac pacemaker is unchanged in position. The heart is enlarged noting atherosclerotic calcification of the thoracic aorta. The pulmonary vasculature is noncongested. Chronic interstitial thickening is similar to previous. A 12 mm nodular density projects over the right lower lung. No airspace consolidation or large pleural effusion is identified. No pneumot horax is seen. The skeletal structures are osteopenic. The bony thorax is grossly intact. IMPRESSION: 1. Cardiomegaly and cardiac pacemaker without radiographic evidence of congestive failure. 2. No airspace consolidation or large pleural effusion is identified. 3. A 12 mm nodular density projects over the right lower lung. This is pathologically indeterminate and may be artifactual. Follow-up with a dedicated PA and lateral examination is recommended for reevaluation. CT abd pelvis wo con CLINICAL HISTORY: elev bilirubin TECHNIQUE: Helical axial images of the abdomen and pelvis were obtained. Automated dose lowering techniques and/or adjustment according to patient size were utilized for this exam. This exam was performed without intravenous contrast. COMPARISON: None available at the time of this dictation. FINDINGS: Lower chest: Numerous pulmonary nodules are seen in the lower lobes bilaterally. Prominent nodules include a 7 mm nodule in the lingula (series 5 image 2), 12 mm nodule in the right middle lobe (image 15), and a millimeter nodule in the right middle lobe (image 5 and 70). Liver: Ill-defined hypodensities are seen in the liver, evaluation is limited by noncontrast technique, findings are concerning for metastases. Gallbladder and biliary tree: No calcified gallstones. Normal caliber wall. No intra- or extrahepatic biliary ductal dilation. Pancreas: Unremarkable, no focal lesions. Spleen: Unremarkable. Adrenals: Unremarkable. Kidneys and ureters: Bilateral renal cysts are seen. Nonobstructive stones are seen in the bilateral kidneys. Bladder: Choe catheter is seen. Reproductive organs: Unremarkable. Bowel: The appendix is normal. Lymph nodes Retroperitoneal: Unremarkable. Pelvic: Unremarkable. Mesenteric: Unremarkable. Peritoneum: Moderate pelvic free fluid is seen, nonspecific. Vessels: Atherosclerotic calcifications are seen. 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 The aorta is tortuous. Abdominal wall: Tiny right inguinal hernia. Bones: Degenerative changes in the visualized spine. Chronic changes are seen in the ribs. Bilateral femoral neck hardware is seen. IMPRESSION: No acute abnormality is seen. There are numerous pulmonary nodules and suggestion of hepatic hypodensities concerning for metastatic disease with unknown primary. Clinical correlation is recommended. Medications Administered ER Medications Given: NSS 1L bolus Metoprolol 5mg IV Metoprolol 5 mg IV NSS 1L bolus Zosyn 4.5g IV ECG Rate (beats per minute): 121 Rhythm: atrial fibrillation Findings: no acute ischemic change (electronically reported as lateral STEMI although moving baseline affecting read) Comparison ECG Date: from (January 10, 2022) Change: the following changes noted (A. fib replaced electronic ventricular pacemaker) Code Status & VTE Plan Code Status Full - family to have discussion regarding this VTE Prophylaxis Plan VTE Prophylaxis will be ordered: Yes PG Care Time/CCT Total # of Minutes Spent Total Time Spent with Patient: Total time spent is greater than 50% in coordination of care (as documented) at patient's floor/unit and/or counseling patient: Coding Level of Care Code 44939 INT INP/OBS CARE 3/75MIN Diagnoses Goals of care, counseling/discussion Z71.89 SIRS (systemic inflammatory response syndrome) R65.10 Acute kidney injury N17.9 Metastatic malignant neoplasm of unknown primary site C79.9; C80.1 Pedal edema R60.0 A-fib I48.91 Elevated bilirubin R17 CAD (coronary artery disease) I25.10 Altered mental state R41.82 Severe protein-calorie malnutrition E43
[2022-09-13 14:31] LABS: Anisocytosis Present; Poikilocytosis Present
[2022-09-13 15:27] LABS: INR 2.8 (0.9-1.1); Partial Thromboplastin Ratio 1.5; Partial Thromboplastin Time 41.6 Seconds (21.0-31.0); Prothrombin Time 27.8 Seconds (9.0-12.0)
[2022-09-13] MEDS: LACTATED RINGER'S 1,000 ML IV SCH (16:20)
[2022-09-13] MEDS: LATANOPROST 0.005% OP SOLN 2.5 ML BTL OP SCH (20:57)
[2022-09-13] MEDS: PIPERACILLIN/TAZOBACTAM 3.375 GM in DEXTROSE 5% 100 ML IV SCH (22:13)
--- NOTE | 2022-09-13 22:39 | Ultrasound Report ---
Exam(s): US VENOUS LEFT LOWER EXTREMITY EXAM: US Duplex Left Lower Extremity Veins CLINICAL HISTORY: Reason for exam: left leg swelling and pain ?dvt. TECHNIQUE: Real-time duplex ultrasound scan of the left lower extremity veins integrating B-mode two-dimensional vascular structure, Doppler spectral analysis, color flow Doppler imaging and compression. COMPARISON: None. FINDINGS: Deep veins: Unremarkable. No DVT in the visualized common femoral, femoral, proximal deep femoral or popliteal veins. The veins demonstrate normal color flow, are normally compressible, with normal phasic flow and/or augmentation response. Superficial veins: Unremarkable. No thrombus in the visualized great saphenous vein. Soft tissues: No acute findings. No popliteal cyst. IMPRESSION: 1. Deep venous thrombosis involving the left common femoral vein, superficial femoral vein, popliteal vein, posterior tibial and peroneal vein. 2. Superficial vein thrombosis within the cephalad greater saphenous vein. Communications: Call Doctor Other Electronically signed by: Thalia Og MD 09/13/22 22:38 PM
[2022-09-13] MEDS ORDERED: Heparin IV Adult Wt-Based Standard *NO* Bolus Protocol IV SCH (23:05)
--- NOTE | 2022-09-13 23:18 | Communication Note ---
Date of Service: September 13, 2022 DVT on US venous doppler. Patient previously on warfarin and reportedly had very labile INR although from EHR review this was mostly supratherapeutic. Recently switched ?two weeks ago to apixaban (on reduced dose 2.5mg PO BID presumably due to age and weight as was prescribed for treatment for A. fib). Last dose of Eliquis this morning. Will start on heparin standard dose without bolus. CT for PE ordered given tachycardia and hypotension. Handed over to resident - if significant PE on CT recommend adding on bolus of heparin.
[2022-09-13] MEDS ORDERED: OPTIRAY 320 500ml IV ONE (23:48)
--- NOTE | 2022-09-14 00:31 | CT Scan Report ---
Exam(s): CTA CHEST IV Amt: 110 ML OPTIRAY 320 EXAM: CT Angiography Chest With Intravenous Contrast CLINICAL HISTORY: Reason for exam: PE. TECHNIQUE: Axial computed tomographic angiography images of the chest with intravenous contrast. Automated exposure control was utilized for the study. A dose lowering technique was utilized adhering to the principles of ALARA. MIP reconstructed images were created and reviewed. COMPARISON: None. FINDINGS: Pulmonary arteries: Unremarkable. Normal enhancement of the pulmonary arteries with no filling defect to suggest pulmonary embolus. Aorta: Atherosclerotic disease of aorta with no aneurysm or dissection. Lungs: Multiple right upper lobe nodules, largest measuring 14 mm. Additional lung nodules within the left lower lobe and left upper lobe, largest measuring 16.9 mm in the left upper lobe. Mild right lower lobe atelectasis. Pleural space: Mild bilateral pleural effusions. No pneumothorax. Heart: Unremarkable. No cardiomegaly. No significant pericardial effusion. No evidence of RV dysfunction. Bones/joints: Significant increase kyphosis with multiple mid lower thoracic vertebral bodies revealing mild to moderate wedging. Diffuse osteopenia/osteoporosis. No dislocation. Soft tissues: Unremarkable. Lymph nodes: Unremarkable. No enlarged lymph nodes. Liver: Ill-defined hypoattenuated liver lesions concerning for metastatic disease. Intraperitoneal space: Upper abdomen reveals mild ascites. There is a large left upper renal pole simple cyst measuring 7.3 cm. There are multiple right upper renal pole simple cyst, largest measuring approximately 3.2 cm. There are calcifications in the right kidney, largest measuring 8 mm, likely stones. Tubes, lines and devices: Normal cardiac size with left-sided pacemaker in place. Coronary artery calcifications seen. IMPRESSION: 1. No pulmonary embolus or aortic dissection. 2. Multiple lung nodules concerning for metastatic disease, correlation with history of primary neoplasm recommended. 3. Limited visualization of the upper abdomen due to phase of contrast injection. Concern for multiple liver metastases. Nonspecific liver cyst with possible right-sided intrarenal stones. Electronically signed by: Thalia Og MD 09/14/22 00:30 AM
[2022-09-14] MEDS ORDERED: Nursing to Pharmacy Communication SCH ×2 (01:15→23:30)
[2022-09-14 02:48] LABS: Basophils # (auto) 0.04 K/uL (0-0.2); Basophils % (auto) 0.3 %; Eosinophils # (auto) 0.28 K/uL (0-0.50); Eosinophils % (auto) 1.8 %; Hematocrit (blood only) 37.8 % (42.0-52.0); Hemoglobin 12.4 g/dl (14.0-18.0); Immature Granulocytes # (auto) 0.15 K/uL (0.01-0.20); Immature Granulocytes % (auto) 0.9 %; Lymphocytes # (auto) 2.95 K/uL (1.2-3.4); Lymphocytes % (auto) 18.5 %; Mean Corpuscular Hemoglobin 26.4 pg (25.0-34.0); Mean Corpuscular Hgb Conc 32.8 g/dL (32.0-36.0); Mean Corpuscular Volume 80.4 fL (80.0-100.0); Monocytes # (auto) 1.34 K/uL (0.11-0.59); Monocytes % (auto) 8.4 %; Neutrophils # (auto) 11.17 K/uL (1.40-6.50); Neutrophils % (auto) 70.1 %; Platelet Count 146 K/uL (130-400); RDW Coefficient of Variation 23.4 % (11.5-14.5); RDW Standard Deviation 64.7 fL (36.4-46.3); White Blood Count 15.93 K/ul (4.8-10.8)
[2022-09-14 02:56] LABS: Partial Thromboplastin Ratio 1.6; Partial Thromboplastin Time 42.7 Seconds (21.0-31.0); Prothrombin Time 29.8 Seconds (9.0-12.0)
[2022-09-14] MEDS: HEPARIN SODIUM/DEXTROSE 25,000 UNITS/500 ML BAG IV SCH ×2 (03:25→23:44)
[2022-09-14 03:47] LABS: Anisocytosis Present; Echinocytes 1+
[2022-09-14] MEDS: LACTATED RINGER'S 1,000 ML IV SCH ×2 (05:12→15:06)
[2022-09-14 09:24] LABS: Basophils # (auto) 0.04 K/uL (0-0.2); Basophils % (auto) 0.2 %; Eosinophils # (auto) 0.37 K/uL (0-0.50); Eosinophils % (auto) 2.1 %; Hematocrit (blood only) 39.3 % (42.0-52.0); Hemoglobin 12.7 g/dl (14.0-18.0); Immature Granulocytes # (auto) 0.16 K/uL (0.01-0.20); Immature Granulocytes % (auto) 0.9 %; Lymphocytes # (auto) 3.15 K/uL (1.2-3.4); Lymphocytes % (auto) 17.7 %; Mean Corpuscular Hemoglobin 26.3 pg (25.0-34.0); Mean Corpuscular Hgb Conc 32.3 g/dL (32.0-36.0); Mean Corpuscular Volume 81.5 fL (80.0-100.0); Mean Platelet Volume 11.1 fL (9.4-12.4); Monocytes # (auto) 1.31 K/uL (0.11-0.59); Monocytes % (auto) 7.4 %; Neutrophils # (auto) 12.76 K/uL (1.40-6.50); Neutrophils % (auto) 71.7 %; Platelet Count 153 K/uL (130-400); RDW Coefficient of Variation 23.6 % (11.5-14.5); RDW Standard Deviation 66.5 fL (36.4-46.3); Red Blood Count 4.82 M/uL (4.70-6.10); White Blood Count 17.79 K/ul (4.8-10.8)
[2022-09-14 09:45] LABS: Albumin Globulin Ratio 0.7 (0.9-2); Albumin Level 2.2 gm/dl (3.4-5.0); BUN Creatinine Ratio 25.2 (10-20); Bilirubin,Total 6.1 mg/dl (0.2-1.0); Calcium 7.5 mg/dl (8.6-10.3); Creatinine Clr Calc Pharmacy 17.7 ml/min; Est GFR (Non-African American) 20.7 ml/min; Globulin 3.3 gm/dl (2.5-4.0); Potassium 4.9 mmol/L (3.5-5.1); Total Protein 5.5 gm/dl (6.0-8.3)
[2022-09-14 09:52] LABS: Acanthocytes 1+; Anisocytosis Present; Tear Drop Cells 1+
[2022-09-14 10:14] LABS: Partial Thromboplastin Time 137.7 Seconds (21.0-31.0)
[2022-09-14] MEDS: PIPERACILLIN/TAZOBACTAM 3.375 GM in DEXTROSE 5% 100 ML IV SCH ×2 (10:43→22:11)
--- NOTE | 2022-09-14 14:17 | Palliative Care Consultation ---
Date of Consultation September 14, 2022 Assessment & Plan (1) Palliative care by specialist: Met with pt family via telephone: because he has no AD, individual calls were made to all children as follows: Efraín (son/primary caregiver) and Juvencio (who was with Efraín at time of call) via [employer] cell Brittney: number provided went to answering machine. Efraín provided another number, new cell [phone] but this is a new cell and does not have voicemail. there was no asnwer to my five attempts to reach her. Roxana via cell [phone]: she states she is in agreement with comfort care. Provided overview of Palliative Medicine, a subspecialty that provides specialized medical care for people living with a serious illness by offering a focus on quality of life. Palliative Medicine is often conflated with hospice: I advised patient/family that Palliative and hospice can be partners but we are not the same. It is important to understand the difference so that we may be informed, and not afraid. Palliative Medicine works to improve QOL through reduction of symptom burden/more control over their illness, for both the patient and family. Palliative medicine clinicians are board certified, specially-trained and another member of the patient's medical care team. We often provide an extra layer of support because our care is based on the needs of the patient, not the prognosis; as such, it's appropriate at any age/advancing stage of a serious illness and can be provided along with curative treatment. Palliative Medicine clinicians are also trained in advanced communication methodologies, to facilitate complex discussions about advanced illness planning, which are needed to help assure that the treatment choices match the patient's goals, aka delivering Goal Concordant care. Finally, we discussed that hospice is a visiting nurse service that focuses on care delivered at the very end of life for patients with terminal illness, with life expectancy less than 6 month. (2) Advanced care planning/counseling discussion: Met with pt family via telephone: because he has no AD, individual calls were made to all children as follows for a total of 90 min with multiple calls to several family members as outlined below: Efraín (son/primary caregiver) and Juvencio (who was with Efraín at time of call) via [employer] cell Brittney: number provided went to answering machine. Efraín provided another number, new cell [phone] but this is a new cell and does not have voicemail. there was no asnwer to my five attempts to reach her. Roxana via cell [phone]: she states she is in agreement with comfort care. Advance illness planning conversations are conducted to review goals and expectations, support shared decision-making, and engage in disease specific advance care planning. This type of advance care planning is sometimes referred to as 'preparedness planning. It is used to review the risks and benefits of offered therapy, elicit and deepen understanding of the underlying illness and therapeutic options, ensure adequate psychosocial support, address existential concerns and coping, and engage in end-of-life planning. Preparedness planning is not meant to replace informed consent discussions. Palliative medicine plays a role in the process of deepening a patients understanding of this specific medical intervention and ensuring this treatment aligns with their goals of care remains a central tenet of the planning conversation. In my calls to Stella and to Roxana, I reviewed current findings, pt continued decline and mottling to BLE. Advised that I believe he is transitioning from a process of living to a process of dying. We discussed code status. He does not have an AD however all 3 refer to a conversation with their Mom/pt who shared that neither she nor patient wanted to be put on life support and both wanted a natural end of life. Patient on comfort care, no CPR/allowed natural . Roxana was her HCP. Roxana shares she endured a lot of criticism and unfair accusations from her siblings and from patient through that process and has therefore distanced herself from all of them, adding it has been years since she had contact with her father. She states she is in agreement for comfort care so long as everyone else is aligned with same decision. in each of these calls, I reviewed [place] Act 169 for NOK decision making: Act 169: Health Care Elastic Attacher Cover[employer]ch: In the absence of a proxy or guardian, any member of the following, in descending order of priority, who is reasonably available, may make health care decisions on behalf of the patient: 1. Spouse (unless divorce is pending) 2. An adult child 3. A parent 4. An adult brother or sister 5. An adult grandchild 6. An adult who has knowledge of the patients preferences and values and is able to assess how the patient would make health care decisions. Roxana Kenny and Juvencio are in agreement for no code and believe pt would not want to prolong EOL. He would choose comfort and QOL over time. They are inclined towards comfort care but want to have a consensus with Brittney who cannot be reached, does not have voicemail and for whom I left a message on [facility] ?home phone of [phone] but the new cell of [phone] does not have voicemail. Efraín states he will drive over to Brittney's house to try and reach her. I have provided my office contact #. IN ACCORDANCE WITH [place] ACT 169, CODE STATUS IS CHANGED TO DNR/DNI. PT DOES NOT HAVE A LIVING WILL, POLST OR OTHER ADV DIRECTIVE. HE HAS NO POA OR COURT APPOINTED HEALTHCARE GUARDIAN NOR DOES HE HAVE A CURRENT LEGAL SPOUSE. THEREFORE HIS ADULT CHILDREN ARE SURROGATE HCP'S AND EACH ADULT CHILD GETS A VOTE, WITH MAJORITY VOTE DETERMINING COURSE OF ACTION. 3/4 ADULT CHILDREN AGREE TO DNR/DNI. CODE STATUS HAS BEEN CHANGED. ORDERS WRITTEN. 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 He has 4 adult children, 3 of the 4 are aware and in agreement with DNR/DNI as well as wanting to move to comfort care. The 3 were agreeable to change code status but did not want to formalize comfort care without input from their sibling Brittney. They are working on trying to reach her and further discuss. I have notified and updated Dr Mayorga/primary team, nursing teams. Thank you for allowing us to participate in the ongoing care of this patient. Please don't hesitate to call or page with any additional concerns. Dr. Maria Teresa Rudolph DNP Director, Palliative Care History of Present Illness Reason for Consultation: goals of care Attending Physician: Tam Mayorga DO History of Present Illness Admitted 09/13/22: per admitting note, "presents to the ER with generalized weakness and altered mental state. Unable to get any history from patient. History obtain from son (Efraín) and daughter (Brittney) at bedside. They report a gradual decline in mental status and weakness to the point he could not get up today with generalized weakness. They deny any facial droop, one sided weakness. His speech has become more difficult to understand but this has come with some generalized confusion. They report he recently was started on a water pill for last two weeks and he has declined since starting that however it appears he was taking this from August 09 (or at least this is when it was picked up from the pharmacy. This was started for pedal edema suspected secondary to heart failure. He is not eating or drinking. No choking or coughing after eating." Founds to have SIRS, CHRISTIANO and new fining of met neoplasm unknown primary PMH: CAD, Hypertension, Hypercholesterolemia, GERD, Permanent Atrial Fibrillation, Symptomatic Bradycardia s/p Dual-Chamber Permanent Pacemaker in the remote past s/p Generator Change-out/Capping of the Atrial Lead several years ago s/p Generator Change-out on 10/14/21 (he now has a Medtronic Angelica XT SR Single Chamber Pacemaker) who presents acutely today complaining of Swelling in his Bilateral Legs (L>R) since July 2022. Additionally [facility] documentation noted as follows: "Tried discussing resuscitation status with the patient and unable to understand, weight up or come to a decision at this time therefore does not have capacity to make this decision. Per son and daughter at bedside he does not have a formal power of [place] attorney. His is . Next of kin are his four children - Efraín, Brittney, Roxana and Juvencio. Efraín and Brittney will discuss code status with other family. Will consult palliative care to aid in these discussions. Roxana is listed as primary contact although reportedly no longer involved in his care. Efraín (son, primary housekeeper child care) can be reached on [phone]. Brittney (daughter) can be reached on [phone]." Imaging revealed numerous lung lesions and liver mets. CT Chest, Abd, Pelvis: Lower chest: Numerous pulmonary nodules are seen in the lower lobes bilaterally. Prominent nodules include a 7 mm nodule in the lingula (series 5 image 2), 12 mm nodule in the right middle lobe (image 15), and a millimeter nodule in the right middle lobe (image 5 and 70). Liver: Ill-defined hypodensities are seen in the liver, evaluation is limited by noncontrast technique, findings are concerning for metastases. Gallbladder and biliary tree: No calcified gallstones. Normal caliber wall. No intra- or extrahepatic biliary ductal dilation. Pancreas: Unremarkable, no focal lesions. Spleen: Unremarkable. Adrenals: Unremarkable. Kidneys and ureters: Bilateral renal cysts are seen. Nonobstructive stones are seen in the bilateral kidneys. Bladder: Choe catheter is seen. Reproductive organs: Unremarkable. Bowel: The appendix is normal. Lymph nodes Retroperitoneal: Unremarkable. Pelvic: Unremarkable. Mesenteric: Unremarkable. Peritoneum: Moderate pelvic free fluid is seen, nonspecific. Vessels: Atherosclerotic calcifications are seen. 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 The aorta is tortuous. Abdominal wall: Tiny right inguinal hernia. Bones: Degenerative changes in the visualized spine. Chronic changes are seen in the ribs. Bilateral femoral neck hardware is seen. Allergies Allergy/AdvReac Type Severity Reaction Status Date / Time No Known Allergies Allergy Verified 09/13/22 11:41 Home Medications Medication Instructions Recorded Confirmed Type atenolol 50 mg tablet 50 mg PO DAILY #90 tabs 05/06/22 09/13/22 Rx psyllium husk (with sugar) 3 1 tbsp PO DAILY PRN Constipation 08/24/22 09/13/22 History gram/7 gram oral powder (Metamucil (with sugar)) triamterene 37.5 1 tab PO DAILY 08/24/22 09/13/22 History mg-hydrochlorothiazide 25 mg tablet apixaban 2.5 mg tablet (Eliquis) 2.5 mg PO BID #180 tabs 09/08/22 09/13/22 Rx latanoprost 0.005 % eye drops 1 drp ophthalmic (eye) HS 09/13/22 09/13/22 History Patient History Medical History (Updated 09/14/22 @ 14:16 by Maria Teresa Rudolph DNP) Advanced care planning/counseling discussion Hip fracture, intertrochanteric (07/09/13) Lipoma of abdominal wall Palliative care by specialist Weakness generalized Surgical History S/P cardiac pacemaker procedure S/P inguinal hernia repair Family History Brother Cardiac disorder Mother Hypertension Denies family history of Ovarian cancer Prostate cancer Myocardial infarction Breast cancer Colorectal cancer Social History Smoking Status: Former smoker Cigarettes Per Day: 40 years; Hx Alcohol Use: No Hx Substance Use: No Preferred Language: Singaporean Communication Ability: Effective Visual Impairment: No Limitations Hearing Ability: Normal Press Breaker Required: No Beliefs That Will Affect Care: None marital status: / Current Living Situation: Family current occupational status: retired Other Information That Helps Us Care for You: No Feels Safe at Home: Yes Safety Concerns: Feels Safe At This Time Childhood Exposure to Second-Hand Smoke: No during the past year weight has: remained stable Dental Care, Regularly: No Physical Activity Frequency: 5-6 Times per Week Physical Activity Frequency Comment: walks almost every day. Seatbelt Use: always Sunscreen Use: No Assistive Devices: Cane Review of Systems Review of Systems: Unobtainable due to cognitive status Physical Exam Constitutional: + cachectic, + frail appearing, + disheveled, + in distress, + lethargic and + malnourished Eyes: reactive pupils ENMT: Mouth: + dry oral mucous membranes, + dental caries, + poor dentition and + chipped teeth Neck: trachea midline Respiratory: + cough (intermittent, dry sounding) and + prolonged expiratory phase Auscultation: + diminished lung sounds and + rhonchi bony chest, generalized discomfort noted with palpation, +anterior wall tenderness Cardiovascular: Rate/Rhythm: + irregularly irregular Extremities: + pedal edema and + varicosities +mottling BLE, cool to touch; feet are purplish-bluish discoloration; BLE with +venous insuff changes, +woody textures skin BLE/hyperpigmented Gastrointestinal (Abdomen): abdomen is scaphoid, some grimacing noted with palpation, BS diminished Musculoskeletal: generalized weakness, unable to participate in exam Skin: mottling BLE with cold to touch noted, pale skin, somewhat sallow Neurologic: lethargic and minimally responsive, unable to follow commands, does not open eyes to verbal, randomly says "yeah" but not in appropriate response pattern Results & Data Vital Signs (Past 12 Hours) Vital Signs Temp Pulse Pulse Resp BP BP Pulse Ox 09/14/22 11:04 84 19 92/65 L 100 09/14/22 09:46 09/14/22 09:25 96/55 L 09/14/22 07:44 97 H 19 80/46 L 98 09/14/22 07:34 119 H 09/14/22 03:03 36.5 C 101 H 16 100/71 99 O2 Del Method 09/14/22 11:04 Room Air 09/14/22 09:46 Room Air 09/14/22 09:25 09/14/22 07:44 Room Air 09/14/22 07:34 09/14/22 03:03 Room Air Laboratory Results data reviewed Diagnostic Findings data reviewed PG Care Time/CCT Total # of Minutes Spent Total Time Spent with Patient: Total time spent is greater than 50% in coordination of care (as documented) at patient's floor/unit and/or counseling patient: I spent 170 minutes overall addressing this very complex case: 15 in medical data review/discussion with referring provider(s) and/or preparation for the visit 30 in direct interaction with the patient 90 Advance Care Planning/Goals of Care discussions as detailed above in note (must be >16min) 15 in subsequent review and synthesis of assessment and plan 20 in communicating with other providers regarding the patient's case: nursing, primary team Prolonged Care Time Prolonged Care Time: Yes Advanced Care Planning 60915 Advanced Care Planning 30 Min 33340 Advanced Care Planning Additional 30 [place] [address] IN/OBS CONSULT LVL 5,80M Patient Type New History Comprehensive Exam Comprehensive Medical Decision Making High Complexity Diagnoses Palliative care by specialist Z51.5 Advanced care planning/counseling discussion Z71.89 Weakness generalized R53.1 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
[2022-09-14] MEDS ORDERED: ACETAMINOPHEN 325 MG TAB PO PRN (16:39)
[2022-09-14] MEDS ORDERED: MoRPHine SULFATE 2 MG/ML CARP IV PRN (16:39)
--- NOTE | 2022-09-14 16:56 | Hospitalist Progress Note ---
Date of Service September 14, 2022 Assessment & Plan (1) Goals of care, counseling/discussion: Plan: Tried discussing resuscitation status with the patient and unable to understand, weight up or come to a decision at this time therefore does not have capacity to make this decision. Per son and daughter at bedside he does not have a formal power of contracts attorney. His is . Next of kin are his four children - Efraín, Brittney, Roxana and Juvencio. Efraín and Brittney will discuss code status with other family. Will consult palliative care to aid in these discussions. Roxana is listed as primary contact although reportedly no longer involved in his care. Efraín (son, primary memory care program director) can be reached on [phone]. Brittney (daughter) can be reached on [phone]. Appreciate Palliative input: General consensus of 3 out of her 4 children wish to have the patient DNR/DNI as well as comfort measures, however, they will not pursue comfort measures until the other daughter has been contacted and is in agreement. Patient has been changed to DNR/DNI however. Palliative continues to get in touch with final child to move forward with comfort measures. (2) 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 Discussed with Efraín (son) and Brittney (daughter) at bedside who will make other family members aware on 09/13/2022 -Consult palliative care to aid in discussions regarding goals of care moving forward as unclear if he would really want anything done especially in his current nutritional state. -If family wishes to pursue treatment, will have radiology perform liver biopsy to find source of cancer. (3) DVT (deep venous thrombosis): Plan: - Found on venous Doppler showing DVT in left common femoral vein, superficial femoral vein, popliteal vein, posterior tibial and peroneal vein. -Started on heparin without bolus, continue for now -Suspect secondary to immobility and current metastatic disease (4) SIRS (systemic inflammatory response syndrome): Plan: -Elevated WBC with dehydration but given severely immunosuppressed and malno urished state will cover with IV Zosyn until blood cultures are negative at 48 hours -This is not sepsis due to lack of source: Does not appear to be urinary, respiratory, skin, or bowel. Patient does seem to be improving at least in lab values with Zosyn. -Check CRP and procal in morning (5) Acute kidney injury: Plan: -Despite total body volume water elevated he is third spacing from malnutrition/cancer he exams intravascularly deplete with CHRISTIANO suspect from recent increase in diuretics. -NSS 2L bolus given on admission. Will continue on LR @ 100 ml/hr for 3L. -Monitor BMP in AM, creatinine up trended to 2.7 (6) A-fib: Plan: -Permanent, currently rate controlled (09/14/22) -Suspect his current rate is relatively appropriate for his intravascular depletion, this is on atenolol that he took this morning. -Likely will need some metoprolol as the atenolol wears off in the next 24 - 48 hours. Would favor metoprolol over atenolol due to his hypotension. (7) Elevated bilirubin: Plan: No biliary dilatation on CT to suggest obstructive cause. Suspect due to metastatic disease. (8) CAD (coronary artery disease): (9) Altered mental state: Plan: -CT head negative for intracranial pathology -Suspect secondary to possible infection +/- ca. +/- uremia (10) Severe protein-calorie malnutrition: Plan: -Consider electrical and radio mechanic evaluation if not pursuing comfort measures. Plan VTE Prophylaxis - Heparin Diet - Heart Healthy, Low Sodium, Minced and moist Disposition - admit to PCU Code Status: DNR/DNI Admission and Anticipated Discharge Date Admission Date: September 13, 2022 Supervising Physician Co-Signing Physician Notes I personally examined the patient and verified all [place] points of history and exam, discussed case, and agree with decision making with Dr Nogueira No meaningful HPI review of systems obtainable whenever I see him. Discussed with nursing as well as wound nurse, as well as palliative team. Chart reviewed. Vitals noted, in general he is laying on his side appears to be very fatigued, fortunately no pain or respiratory distress. Cardio is regular without rubs murmurs or gallops, lungs clear to auscultation bilaterally no rales rhonchi or wheezes with good effort. Skin shows no rashes, pallor or icterus, his toes are a little bit cyanotic, but the rest of his body is not. Hypotensioncertainly a case can be made for simply dehydration, malnutrition and failure to thrive, but also concern on sepsis given SIRS, concern on hyp ovolemia given his bump in creatinine, poor p.o. intake, and diuretic. For now we will continue to manage as allfluid support, ongoing monitoring, empiric antibioticstrend inflammatory markers/follow cultures, serial exams. New diagnosis/previously unknown metastatic cancerpalliative discussing with family in regards to goals of care. Metabolic encephalopathylikely due to above. Supportive care, reorientation as possible DVTheparin drip Subjective Patient seen at bedside this morning. No acute events reported overnight. Patient initially alert and oriented to person and place, however, later in the day only alert and minimally responsive to questions. Denies any pain at the time of my interview. Appears comfortable overall. No meaningful or new HPI gathered at this time. No other complaints at this time. Review of Systems Review of Systems: All systems reviewed & are unremarkable except as noted in HPI & below Physical Exam Constitutional: + cachectic, + altered mental status, + frail appearing, cooperative and + malnourished Eyes: + scleral abnormality Neck: normal visual inspection Respiratory: normal respiratory effort; no respiratory distress Cardiovascular: Rate/Rhythm: regular rate and + irregularly irregular Extremities: + edema Gastrointestinal (Abdomen): normal bowel sounds, soft, nontender, no hepatosplenomegaly Musculoskeletal: Head/Neck/Chest: head atraumatic Skin: no rashes, warm and dry Neurologic: moves all extremities Results & Data Results & Data Vital Signs (Past 12 Hours) Vital Signs Pulse Pulse Resp BP BP Pulse Ox O2 Del Method 09/14/22 16:22 93 H 09/14/22 15:17 54 L 17 104/67 09/14/22 11:04 84 19 92/65 L 100 Room Air 09/14/22 09:46 Room Air 09/14/22 09:25 96/55 L 09/14/22 07:44 97 H 19 80/46 L 98 Room Air 09/14/22 07:34 119 H
--- NOTE | 2022-09-14 19:18 | Billing Data ---
Date of Service September 14, 2022 Coding Level of Care Code 14697 SUB INP/OBS CARE MIN
--- NOTE | 2022-09-14 19:39 | XCELERA ---
[id number]
[2022-09-14 19:40] LABS: Partial Thromboplastin Ratio 2.8
[2022-09-14] MEDS: LATANOPROST 0.005% OP SOLN 2.5 ML BTL OP SCH (22:03)
[2022-09-14] MEDS ORDERED: METOPROLOL TARTRATE 25 MG TAB PO STA (23:30)
--- NOTE | 2022-09-15 00:05 | Electrocardiogram Report ---
Test Reason : Blood Pressure : / mmHG Vent. Rate : 121 BPM Atrial Rate : 138 BPM P-R Int : 000 ms QRS Dur : 076 ms QT Int : 312 ms P-R-T Axes : 000 -17 -41 degrees QTc Int : 443 ms Poor data quality, interpretation may be adversely affected Atrial fibrillation with rapid ventricular response Poor R wave progression, consider anterior ND vs. lead placement vs. LVH Nonspecific T wave abnormality Abnormal ECG When compared with ECG of 10-JAN-2022 02:54, Atrial fibrillation has replaced Electronic ventricular pacemaker Confirmed by Sanjeev Goss ([id number]) on 09/15/2022 12:04:43 AM Referred By: REFERRED SELF Confirmed By:Sanjeev Goss
[2022-09-15] MEDS ORDERED: METOPROLOL TARTRATE 1 MG/ML VIAL IV STA (00:38)
[2022-09-15 02:21] LABS: Basophils # (auto) 0.05 K/uL (0-0.2); Basophils % (auto) 0.3 %; Eosinophils # (auto) 0.43 K/uL (0-0.50); Eosinophils % (auto) 2.6 %; Hematocrit (blood only) 37.6 % (42.0-52.0); Hemoglobin 12.2 g/dl (14.0-18.0); Immature Granulocytes # (auto) 0.13 K/uL (0.01-0.20); Immature Granulocytes % (auto) 0.8 %; Lymphocytes # (auto) 2.45 K/uL (1.2-3.4); Mean Corpuscular Hemoglobin 26.5 pg (25.0-34.0); Mean Corpuscular Hgb Conc 32.4 g/dL (32.0-36.0); Mean Corpuscular Volume 81.7 fL (80.0-100.0); Mean Platelet Volume 11.3 fL (9.4-12.4); Monocytes # (auto) 1.35 K/uL (0.11-0.59); Monocytes % (auto) 8.3 %; Neutrophils # (auto) 11.89 K/uL (1.40-6.50); Platelet Count 142 K/uL (130-400); RDW Coefficient of Variation 23.7 % (11.5-14.5); RDW Standard Deviation 66.5 fL (36.4-46.3)
[2022-09-15 02:36] LABS: Albumin Globulin Ratio 0.7 (0.9-2); Albumin Level 2.1 gm/dl (3.4-5.0); BUN Creatinine Ratio 23.9 (10-20); Bilirubin,Total 5.8 mg/dl (0.2-1.0); C Reactive Protein 12.97 mg/dl (0-0.5); Calcium 7.6 mg/dl (8.6-10.3); Creatinine Clr Calc Pharmacy 18.8 ml/min; Est GFR (African American) 25.7 ml/min; Est GFR (Non-African American) 22.2 ml/min; Globulin 3.2 gm/dl (2.5-4.0); Potassium 4.4 mmol/L (3.5-5.1); Total Protein 5.3 gm/dl (6.0-8.3)
[2022-09-15 02:53] LABS: Anisocytosis Present; Echinocytes 1+
[2022-09-15 03:16] LABS: Partial Thromboplastin Time 81.7 Seconds (21.0-31.0)
[2022-09-15] MEDS: HEPARIN SODIUM/DEXTROSE 25,000 UNITS/500 ML BAG IV SCH ×2 (03:33→09:29)
--- NOTE | 2022-09-15 05:41 | Electrocardiogram Report ---
Test Reason : Blood Pressure : / mmHG Vent. Rate : 107 BPM Atrial Rate : 131 BPM P-R Int : 000 ms QRS Dur : 088 ms QT Int : 336 ms P-R-T Axes : 000 010 198 degrees QTc Int : 448 ms Atrial fibrillation with rapid ventricular response Nonspecific T wave abnormality Abnormal ECG When compared with ECG of 13-SEP-2022 09:19, Criteria for Anterior infarct are no longer Present Confirmed by Sanjeev Goss ([id number]) on 09/15/2022 5:40:52 AM Referred By: REFERRED SELF Confirmed By:Sanjeev Goss
[2022-09-15 08:06] LABS: A calco-baum cmplx NotReported Not Detected (NotDetected); Bact fragilis Not Reported Not Detected (NotDetected); C auris Not Reported Not Detected (NotDetected); Calbicans Not Reported Not Detected (NotDetected); Candida glabrata Not Reported Not Detected (NotDetected); Candida krusei Not Reported Not Detected (NotDetected); Cneoformans/gatti Not Reported Not Detected (NotDetected); Cparapsilosis Not Reported Not Detected (NotDetected); Ctropicalis Not Reported Not Detected (NotDetected); E cloacae compx Not Reported Not Detected (NotDetected); Efaecalis Not Reported Not Detected (NotDetected); Efaecium Not Reported Not Detected (NotDetected); Enterobacterales Not Reported Not Detected (NotDetected); Escherichia coli Not Reported Not Detected (NotDetected); H influenzae Not Reported Not Detected (NotDetected); K aerogenes Not Reported Not Detected (NotDetected); Koxytoca Not Reported Not Detected (NotDetected); Kpneumoniae grp Not Reported Not Detected (NotDetected); Lmonocyt Not Reported Not Detected (NotDetected); N meningitidis Not Reported Not Detected (NotDetected); P aeruginosa Not Reported Not Detected (NotDetected); Proteus spp Not Reported Not Detected (NotDetected); Salmonella spp Not Reported Not Detected (NotDetected); Smarcescens Not Reported Not Detected (NotDetected); Staph lugdunensis Not Reported Not Detected (NotDetected); Staph spp. Not Reported Not Detected (NotDetected); Staphaureus Not Reported Not Detected (NotDetected); Staphepi Not Reported Not Detected (NotDetected); Stenmaltophilia Not Reported Not Detected (NotDetected); Strep agal(GrpB) Not Reported Not Detected (NotDetected); Strep pneum Not Reported Not Detected (NotDetected); Strep pyog (GrpA) Not Reported Not Detected (NotDetected); Strep spp Not Reported DETECTED (NotDetected)
[2022-09-15 08:28] LABS: Streptococcus spp DETECTED (NotDetected)
[2022-09-15] MEDS: PIPERACILLIN/TAZOBACTAM 3.375 GM in DEXTROSE 5% 100 ML IV SCH (09:46)
[2022-09-15 10:32] LABS: Partial Thromboplastin Ratio 2.4
[2022-09-15 10:34] LABS: Partial Thromboplastin Time 64.8 Seconds (21.0-31.0)
[2022-09-15] MEDS ORDERED: LORazepam 1 MG TAB PO PRN (11:47)
[2022-09-15] MEDS ORDERED: GLYCOPYRROLATE 0.2 MG/ML VIAL IV PRN (11:47)
[2022-09-15] MEDS ORDERED: MoRPHine SULFATE 10 MG/0.5 ML UDP PO PRN (11:47)
[2022-09-15] MEDS ORDERED: LORazepam 2 MG/1 ML VIAL IV PRN (11:47)
[2022-09-15] MEDS ORDERED: MoRPHine SULFATE 2 MG/ML CARP IV PRN (11:49)
--- NOTE | 2022-09-15 12:09 | Palliative Care Progress Note ---
Date of Service September 15, 2022 Assessment & Plan (1) Palliative care by specialist: (2) Advanced care planning/counseling discussion: Plan: In follow up to the many ACP discussions from yesterday, this morning I spoke with pt daughter, Brittney, who was the only one of the four kids I was unable to reach yesterday. We spoke for 25min. She tells me she and siblings Efraín and Juvencio spoke, they are all in agreement for DNR/DNI along with comfort care. She and reviewed options for care and agreed to initiate comfort care here in hospital while CM assists them with dispo plan. She is very familiar with EOL care due to her fiance dying from cancer. She asked about hospice, which i shared is an interdisciplinary program offered by nurses, nurses aides, social workers, chaplains and a chief medical director for patients with a terminal condition and a life expectancy of less than 6 months. This is covered by Medicare at 100%/no out of pocket expense to patient and all meds/supplies needed by patient for the reason they are on hospice are paid for/covered by hospice. The goal is assure quality of life of the patient in their home setting (home, fpc, inpatient hospice setting) by providing symptoms management, psychosocial and spiritual support. However, they cannot offer 24 hours care and if the family is unable to provide that care, they will have to consider personal care with out of pocket cost vs. fpc placement. We discussed the goals of hospice as a patient service and the goals of care; we discussed EOL trajectories and transitions bernice the emotional impact of realizing mortality as a concrete reality from prior abstract considerations. Pt was reassured that no matter where they are along this trajectory, they are not alone - their medical team will remain by their side through their journey. Discussed the pros/cons of accepting help when especially weakened and distressed by pain-which would also help provide relief/decrease caregiver burden/strain. Brittney feels home hospice would be best but pt resides with and is cared for by his sons, so she wants Efraín and Juvencio to make the final decision about this because it is their home. (3) Weakness generalized: (4) Metastatic malignant neoplasm of unknown primary site: (5) Cachexia: Plan They (Brittney, Juvencio Kenny) will be coming in to visit later today and would like to meet with CM to review hospice options. I have updated primary team, CM and nursing. I have written comfort care orders. Reviewed with Dr. Mayorga - we agreed to transition over to PO Abtx since he is taking PO and this can be completed while on hospice/for as long as he is willing to take the medication. Thank you for allowing us to participate in the ongoing care of this patient. Please don't hesitate to call or page with any additional concerns. Dr. Maria Teresa Rudolph DNP Director, Palliative Care Admission and Anticipated Discharge Date Admission Date: September 13, 2022 Subjective patient unchanged.mottling to BLE waxing/waning mentation he is not decisional adult children x4 engaged in decision making: Brittney Kenny Willy and Roxana Review of Systems Review of Systems: Unobtainable due to cognitive status Physical Exam Constitutional: + cachectic, + frail appearing, + disheveled, + in distress, + lethargic and + malnourished Eyes: reactive pupils ENMT: Mouth: + dry oral mucous membranes, + dental caries, + poor dentition and + chipped teeth Neck: trachea midline Respiratory: + cough (intermittent, dry sounding) and + prolonged expiratory phase Auscultation: + diminished lung sounds and + rhonchi bony chest, generalized discomfort noted with palpation, +anterior wall tenderness Cardiovascular: Rate/Rhythm: + irregularly irregular Extremities: + pedal edema and + varicosities +mottling BLE, cool to touch; feet are purplish-bluish discoloration; BLE with +venous insuff changes, +woody textures skin BLE/hyperpigmented Gastrointestinal (Abdomen): abdomen is scaphoid, some grimacing noted with palpation, BS diminished Musculoskeletal: generalized weakness, unable to participate in exam Skin: mottling BLE with cold to touch noted, pale skin, somewhat sallow Neurologic: lethargic and minimally responsive, unable to follow commands, does not open eyes to verbal, randomly says "yeah" but not in appropriate response pattern Results & Data Vital Signs (Past 12 Hours) Vital Signs Temp Pulse Pulse Resp BP BP BP 09/15/22 11:52 36.5 C 66 18 109/70 09/15/22 07:15 09/15/22 10:03 105 H 09/15/22 07:00 36.8 C 69 18 95/67 L 09/15/22 02:25 36.6 C 94 H 16 96/65 L 09/15/22 01:12 100 H 109/69 09/15/22 00:48 132 H 95/65 L 09/15/22 00:40 131 H 95/65 L Pulse Ox O2 Del Method 09/15/22 11:52 91 Room Air 09/15/22 07:15 Room Air 09/15/22 10:03 09/15/22 07:00 97 Room Air 09/15/22 02:25 100 Room Air 09/15/22 01:12 09/15/22 00:48 09/15/22 00:40 PG Care Time/CCT Total # of Minutes Spent Total Time Spent: 55 Total Time Spent with Patient: Total time spent is greater than 50% in coordination of care (as documented) at patient's floor/unit and/or counseling patient: Advanced Care Planning 18806 Advanced Care Planning 30 Min [place] [address] SUB INP/OBS CARE 3/50MIN Patient Type Established History Comprehensive Exam Comprehensive Medical Decision Making Moderate Complexity Diagnoses Palliative care by specialist Z51.5 Advanced care planning/counseling discussion Z71.89 Weakness generalized R53.1 Metastatic malignant neoplasm of unknown primary site C79.9; C80.1 Cachexia R64 Additional Codes Advanced Care Planning - 32140 Advanced Care Planning 30 Min: 07050 Advanced Care Planning 30 Min ([id number])
[2022-09-15] MEDS: cefTRIAXone SODIUM 1,000 MG in DEXTROSE 5% AD-VAN 50 ML IV SCH (12:57)
--- NOTE | 2022-09-15 18:10 | Hospitalist Progress Note ---
Date of Service September 15, 2022 Assessment & Plan (1) Goals of care, counseling/discussion: Plan: -Family has reached a consensus thanks to discussions with them, the patient, and palliative care that they would all like to move forward with comfort measures -Appreciate palliative medicine and their efforts to make the patient comfortable -Case management currently working with family and setting up home hospice options -Downgrade to [facility] (2) 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 As above, goals of care are now toward comfort measures and no additional work-up for metastatic disease at this time (3) DVT (deep venous thrombosis): Plan: - Found on venous Doppler showing DVT in left common femoral vein, superficial femoral vein, popliteal vein, posterior tibial and peroneal vein. -Started on heparin without bolus, which has been discontinued -Suspect secondary to immobility and current metastatic disease (4) SIRS (systemic inflammatory response syndrome): Plan: -Elevated WBC with dehydration but given severely immunosuppressed and malnourished with positive culture showing Streptococcus species -We will continue antibiotics as able as these do provide comfort if treating an infection (5) Acute kidney injury: Plan: -Fluids have been discontinued, we will have the patient eat and drink as able. (6) A-fib: Plan: -Permanent, currently rate controlled (09/14/22) -Suspect his current rate is relatively appropriate for his intravascular depletion, this is on atenolol that he took this morning. (7) Elevated bilirubin: Plan: No biliary dilatation on CT to suggest obstructive cause. Suspect due to metastatic disease. (8) CAD (coronary artery disease): (9) Altered mental state: Plan: -CT head negative for intracranial pathology -Suspect secondary to possible infection +/- ca. +/- uremia (10) Severe protein-calorie malnutrition: Plan VTE Prophylaxis - None Diet - Heart Healthy, Low Sodium, Minced and moist Disposition -downgrade to [facility], eventually discharge home with home hospice likely Code Status: DNR/DNI Admission and Anticipated Discharge Date Admission Date: September 13, 2022 Supervising Physician Co-Signing Physician Notes I personally examined the patient and verified all [place] points of history and exam, discussed case, and agree with decision making with Dr Nogueira No meaningful HPI review of systems obtainable whenever I see him, but he is more talkative. For what it is worth, loosely denies complaints. Vitals noted, in general he is laying on his side appears to be very fatigued, fortunately no pain or respiratory distress. Breathing unlabored no accessory muscle use good effort. Skin shows no rashes no pallor or icterus. Neuro without focal deficits. Very thin appearing. Hypotensioncertainly a case can be made for simply dehydration, malnutrition and failure to thrive, but also concern on sepsis given SIRS, concern on hypovolemia given his bump in creatinine, poor p.o. intake, and diuretic. While it is only in 1 tube, seeing gram-positive cocci in chains, with sepsis of initially uncertain sourceI suspect this is the source. Given his overall palliative approach, it seems more harm than benefit to put him through an extensive work-up, but given that it will likely be fairly easy to treatcontinue antibiotics for now, and likely home on an oral beta-lactam. New diagnosis/previously unknown metastatic cancerpalliative discussing with family in regards to goals of care. Discussed with palliative team, input greatly appreciated. Metabolic encephalopathylikely due to above. Supportive care, reorientation as possible, seems confused but more alert when I see him today. Pressure ulcer of coccyx, stage 2, POA vs evolving Deep tissue injury, POAwound care Anticipate home with hospice. Subjective Patient seen at bedside this morning. No acute events reported overnight. Patient continues to be pleasant but confused. Voices no real pain at this time. No other complaints able to be voiced at this time. Review of Systems Review of Systems: Per HPI Physical Exam Constitutional: + cachectic, + altered mental status, + frail appearing, cooperative and + malnourished Eyes: + scleral abnormality Neck: normal visual inspection Respiratory: normal respiratory effort; no respiratory distress Cardiovascular: Rate/Rhythm: regular rate and + irregularly irregular Extremities: + edema Gastrointestinal (Abdomen): normal bowel sounds, soft, nontender, no hepatosplenomegaly Musculoskeletal: Head/Neck/Chest: head atraumatic Skin: no rashes, warm and dry Neurologic: moves all extremities Results & Data Results & Data Vital Signs (Past 12 Hours) Vital Signs Temp Pulse Pulse Resp BP BP Pulse Ox 09/15/22 16:00 36.5 C 70 18 115/68 96 09/15/22 11:52 36.5 C 66 18 109/70 91 09/15/22 07:15 09/15/22 10:03 105 H 09/15/22 07:00 36.8 C 69 18 95/67 L 97 O2 Del Method 09/15/22 16:00 Room Air 09/15/22 11:52 Room Air 09/15/22 07:15 Room Air 09/15/22 10:03 09/15/22 07:00 Room Air
--- NOTE | 2022-09-15 18:22 | Billing Data ---
Date of Service September 15, 2022 Coding Level of Care Code 77517 SUB INP/OBS CARE MIN
[2022-09-15] MEDS: LATANOPROST 0.005% OP SOLN 2.5 ML BTL OP SCH (19:37)
--- NOTE | 2022-09-16 09:46 | Hospitalist Progress Note ---
Date of Service September 16, 2022 Assessment & Plan (1) Goals of care, counseling/discussion: Plan: -Family has reached a consensus thanks to discussions with them, the patient, and palliative care that they would all like to move forward with comfort measures and hospice care -Appreciate palliative medicine and their efforts to make the patient comfortable -Case management currently working with family for dispo planning; patient's family considering SNF vs. home (2) 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 As above, goals of care are now toward comfort measures and no additional work-up for metastatic disease at this time (3) DVT (deep venous thrombosis): Plan: - Found on venous Doppler showing DVT in left common femoral vein, superficial femoral vein, popliteal vein, posterior tibial and peroneal vein. -Started on heparin without bolus, which has been discontinued -Suspect secondary to immobility and current metastatic disease (4) SIRS (systemic inflammatory response syndrome): Plan: -Elevated WBC with dehydration but given severely immunosuppressed and malnourished with positive culture showing Streptococcus species -We will continue antibiotics as able as these do provide comfort if treating an infection (5) Acute kidney injury: Plan: -Fluids have been discontinued, we will have the patient eat and drink as able. (6) A-fib: Plan: -Permanent, currently rate controlled (09/14/22) -Suspect his current rate is relatively appropriate for his intravascular depletion, this is on atenolol that he took this morning. (7) Elevated bilirubin: Plan: No biliary dilatation on CT to suggest obstructive cause. Suspect due to metastatic disease. (8) CAD (coronary artery disease): (9) Altered mental state: Plan: -CT head negative for intracranial pathology -Suspect secondary to possible infection +/- ca. +/- uremia (10) Severe protein-calorie malnutrition: Plan VTE Prophylaxis - None Diet - Heart Healthy, Low Sodium, Minced and moist Disposition: continue admission on MedSurg; hopeful for discharge home w/ home hospice support Code Status: DNR/DNI Admission and Anticipated Discharge Date Admission Date: September 13, 2022 Supervising Physician Co-Signing Physician Notes I personally examined the patient and verified all [place] points of history and exam, discussed case, and agree with decision making with Dr Jackson No meaningful HPI review of systems obtainable whenever I see him, but his brother is present. Updated. Vitals noted, in general he is laying on his side appears to be very fatigued, fortunately no pain or respiratory distress. Breathing unlabored no accessory muscle use good effort. Skin shows no rashes no pallor or icterus. Neuro without focal deficits. Very thin appearing. Hypotensioncertainly a case can be made for simply dehydration, malnutrition and failure to thrive, but also concern on sepsis given SIRS, concern on hypovolemia given his bump in creatinine, poor p.o. intake, and diuretic. While it is only in 1 tube, seeing gram-positive cocci in chains, with sepsis of initially uncertain sourceI suspect this is the source. To be clearI suspect his sepsis was due to strep bacteremia present on admission, now treating and improving. Given his overall palliative approach, it seems more harm than benefit to put him through an extensive work-up, but given that it will likely be fairly easy to treatcontinue antibiotics for now, and likely home on an oral beta-lactam. New diagnosis/previously unknown metastatic cancerpalliative discussing with family in regards to goals of care. Discussed with palliative team, input greatly appreciated. Metabolic encephalopathylikely due to above. Supportive care, reorientation as possible, family present at bedside will be helpful. Pressure ulcer of coccyx, stage 2, POA vs evolving Deep tissue injury, POAwound care Family determining home with hospice versus SNF. Subjective Patient seen and evaluated at bedside this morning. No acute events reported overnight. He has no specific complaints or concerns at this time; denies any pain. Is pleasant but confused. Did well eating his breakfast this morning. Voices that he "likes home" and would like to get home. Review of Systems Review of Systems: Per HPI Physical Exam Physical Exam: GENERAL: Cachectic, frail appearing. Seated in bed in no acute distress. Appropriately interactive, pleasantly confused. HENT: Moist mucous membranes. Edentulous. RESPIRATORY: No acute respiratory distress. Normal respiratory effort. SKIN: Warm, dry. NEUROLOGIC: Moves all extremities.
--- NOTE | 2022-09-16 11:24 | Palliative Care Progress Note ---
Date of Service September 16, 2022 Assessment & Plan (1) Palliative care by specialist: Plan: comfort care underway (2) Advanced care planning/counseling discussion: Plan: Yeserday, sons Efraín and Juvencio expressed wish to bring pt home with hospice and they would continue caring for him as they have been doing. Both sisters in agreement. This AM Efraín called CM and advised he doesn't want to do this and gave no further information. He told CM to call his sisters Brittney and Roxana, Brittney unreachacble - no answer and no voicemail set up. Discussed with CM and primary team: begin SNF search and likely pt will remain here until he is accepted at a SNF which will accept his MA. Cont comfort care. 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 Reviewed with Dr. Mayorga Thank you for allowing us to participate in the ongoing care of this patient. Please don't hesitate to call or page with any additional concerns. Dr. Maria Teresa Rudolph DNP Director, Palliative Care Admission and Anticipated Discharge Date Admission Date: September 13, 2022 Subjective pt is on comfort care waxing/waning alert/interactiveness yesterday family wanted him home with hospice this morning son called CM and advised he does not want to care for pt at home with hospice, had no other plan/recomendation, no other family member would be the repalcement and advised CM to call his ssister Roxana whom they are all est ranged from (see my prevcious notes) Review of Systems Review of Systems: Unobtainable due to cognitive status Physical Exam Constitutional: + cachectic, + frail appearing, + disheveled, + in distress, + lethargic and + malnourished Eyes: reactive pupils ENMT: Mouth: + dry oral mucous membranes, + poor dentition and + chipped teeth Neck: trachea midline Respiratory: + cough (intermittent, dry sounding) and + prolonged expiratory phase Auscultation: + diminished lung sounds and + rhonchi bony chest, generalized discomfort noted with palpation, +anterior wall tenderness Cardiovascular: Rate/Rhythm: + irregularly irregular Extremities: + pedal edema and + varicosities +mottling BLE, cool to touch; feet are purplish-bluish discoloration; BLE with +venous insuff changes, +woody textures skin BLE/hyperpigmented Gastrointestinal (Abdomen): abdomen is scaphoid, some grimacing noted with palpation, BS diminished Musculoskeletal: generalized weakness, unable to participate in exam Skin: mottling BLE with cold to touch noted, pale skin, somewhat sallow Neurologic: lethargic and minimally responsive, unable to follow commands, does not open eyes to verbal, randomly says "yeah" but not in appropriate response pattern Results & Data Vital Signs (Past 12 Hours) Vital Signs Pulse Resp BP Pulse Ox O2 Del Method 09/16/22 07:50 98 H 18 91/65 L 98 Room Air PG Care Time/CCT Total # of Minutes Spent Total Time Spent: 40 Total Time Spent with Patient: Total time spent is greater than 50% in coordination of care (as documented) at patient's floor/unit and/or counseling patient: Coding [place] [address] SUB INP/OBS CARE 3/50MIN Patient Type Established History Expanded Problem Focused Exam Detailed Medical Decision Making High Complexity Diagnoses Palliative care by specialist Z51.5 Advanced care planning/counseling discussion Z71.89 Weakness generalized R53.1 Metastatic malignant neoplasm of unknown primary site C79.9; C80.1 Cachexia R64
[2022-09-16] MEDS: cefTRIAXone SODIUM 1,000 MG in DEXTROSE 5% AD-VAN 50 ML IV SCH (12:34)
--- NOTE | 2022-09-16 19:30 | Billing Data ---
Date of Service September 16, 2022 Coding Level of Care Code 45784 SUB INP/OBS CARE MIN
[2022-09-16] MEDS: LATANOPROST 0.005% OP SOLN 2.5 ML BTL OP SCH (19:34)
[2022-09-17] MEDS: cefTRIAXone SODIUM 1,000 MG in DEXTROSE 5% AD-VAN 50 ML IV SCH (13:18)
--- NOTE | 2022-09-17 14:49 | Hospitalist Progress Note ---
Date of Service September 17, 2022 Assessment & Plan (1) Goals of care, counseling/discussion: Plan: -Family has reached a consensus thanks to discussions with them, the patient, and palliative care that they would all like to move forward with comfort measures and hospice care -Appreciate palliative medicine and their efforts to make the patient comfortable -Case management currently working with family for dispo planning; patient's family considering SNF vs. home -Patient's brothers updated in patient room this afternoon (2) 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 As above, goals of care are now toward comfort measures and no additional work-up for metastatic disease at this time (3) DVT (deep venous thrombosis): Plan: - Found on venous Doppler showing DVT in left common femoral vein, superficial femoral vein, popliteal vein, posterior tibial and peroneal vein. -Started on heparin without bolus, which has been discontinued -Suspect secondary to immobility and current metastatic disease (4) SIRS (systemic inflammatory response syndrome): Plan: -Elevated WBC with dehydration but given severely immunosuppressed and malnourished with positive culture showing Streptococcus species -We will continue antibiotics as able as these do provide comfort if treating an infection (5) Acute kidney injury: Plan: -Fluids have been discontinued, we will have the patient eat and drink as able. (6) A-fib: Plan: -Permanent, currently rate controlled (09/14/22) -Suspect his current rate is relatively appropriate for his intravascular depletion, this is on atenolol that he took this morning. (7) Elevated bilirubin: Plan: No biliary dilatation on CT to suggest obstructive cause. Suspect due to metastatic disease. (8) CAD (coronary artery disease): (9) Altered mental state: Plan: -CT head negative for intracranial pathology -Suspect secondary to possible infection +/- ca. +/- uremia (10) Severe protein-calorie malnutrition: Plan VTE Prophylaxis - None Diet - Heart Healthy, Low Sodium, Minced and moist Disposition: continue admission on MedSurg; hopeful for discharge home w/ home hospice support Code Status: DNR/DNI Admission and Anticipated Discharge Date Admission Date: September 13, 2022 Supervising Physician Co-Signing Physician Notes I personally examined the patient and verified all [place] points of history and exam, discussed case, and agree with decision making with Dr Jackson Feels okay. No complaints. Vitals noted, in general he is sitting up in bed, no distress. Breathing unlabored no accessory muscle use good effort. Skin shows no rashes no pallor or icterus. Neuro without focal deficits. Very thin appearing. Hypotensioncertainly a case can be made for simply dehydration, malnutrition and failure to thrive, but also concern on sepsis given SIRS, concern on hypovolemia given his bump in creatinine, poor p.o. intake, and diuretic. While it is only in 1 tube, seeing gram-positive cocci in chains, with sepsis of initially uncertain sourceI suspect this is the source. To be clearI suspect his sepsis was due to gamma strep bacteremia present on admission, now treating and improving. Given his overall palliative approach, it seems more harm than benefit to put him through an extensive work-up, but given that it will likely be fairly easy to treatcontinue antibiotics for now, and likely home on an oral beta-lactam. New diagnosis/previously unknown metastatic cancerpalliative discussing with family in regards to goals of care. Discussed with palliative team, input greatly appreciated. Metabolic encephalopathylikely due to above. Supportive care, reorientation as possible, family present at bedside will be helpful. Appears better today Pressure ulcer of coccyx, stage 2, POA vs evolving Deep tissue injury, POAwound care Family determining home with hospice versus SNF. Subjective Patient seen and evaluated at bedside this morning. No acute events reported overnight. He states that he "wants to go home" but otherwise voices no concerns. He specifically denies any pain or SOB. Review of Systems Review of Systems: Per HPI Physical Exam Physical Exam: GENERAL: Cachectic, frail appearing. Seated in bed in no acute distress. Appropriately interactive, pleasantly confused. HENT: Moist mucous membranes. Edentulous. RESPIRATORY: No acute respiratory distress. Normal respiratory effort. SKIN: Warm, dry. NEUROLOGIC: Moving all extremities. Results & Data Results & Data Vital Signs (Past 12 Hours) Vital Signs O2 Del Method 09/17/22 07:45 Room Air Resident Activity Tracking Resident Involvement: Resident Care Provided Care Provided: Adult Hospital Medicine
[2022-09-17] MEDS: LATANOPROST 0.005% OP SOLN 2.5 ML BTL OP SCH (19:40)
--- NOTE | 2022-09-17 19:48 | Billing Data ---
Date of Service September 17, 2022 Coding Level of Care Code 78742 SUB INP/OBS CARE
--- NOTE | 2022-09-18 09:48 | Hospitalist Progress Note ---
Date of Service September 18, 2022 Assessment & Plan (1) Goals of care, counseling/discussion: Plan: -Family has reached a consensus thanks to discussions with them, the patient, and palliative care that they would all like to move forward with comfort measures and hospice care -Appreciate palliative medicine and their efforts to make the patient comfortable -Patient's brothers updated in patient room on 09/17 -Patient's son, Efraín, called and updated this morning at 0948; Efraín states that he and his sister, Brtitney, will be coming in to visit this afternoon/discuss discharge planning -Appreciate case management's assistance in working with family for safe dispo planning; at this time, plan is for patient to be d/c to SNF w/ hospice services (2) 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 As above, goals of care are now toward comfort measures and no additional work-up for metastatic disease at this time (3) DVT (deep venous thrombosis): Plan: - Found on venous Doppler showing DVT in left common femoral vein, superficial femoral vein, popliteal vein, posterior tibial and peroneal vein. -Started on heparin without bolus, which has been discontinued -Suspect secondary to immobility and current metastatic disease (4) SIRS (systemic inflammatory response syndrome): Plan: -Elevated WBC with dehydration but given severely immunosuppressed and malnourished with positive culture showing Streptococcus species -We will continue antibiotics as able as these do provide comfort if treating an infection (5) Acute kidney injury: Plan: -Fluids have been discontinued, we will have the patient eat and drink as able. (6) A-fib: Plan: -Permanent, currently rate controlled (09/14/22) -Suspect his current rate is relatively appropriate for his intravascular depletion, this is on atenolol that he took this morning. (7) Elevated bilirubin: Plan: No biliary dilatation on CT to suggest obstructive cause. Suspect due to metastatic disease. (8) CAD (coronary artery disease): (9) Altered mental state: Plan: -CT head negative for intracranial pathology -Suspect secondary to possible infection +/- ca. +/- uremia (10) Severe protein-calorie malnutrition: Plan VTE Prophylaxis - None Diet - Heart Healthy, Low Sodium, Minced and moist Disposition: continue admission on MedSurg; hopeful for discharge home w/ home hospice support Code Status: DNR/DNI Admission and Anticipated Discharge Date Admission Date: September 13, 2022 Supervising Physician Co-Signing Physician Notes I personally examined the patient and verified all [place] points of history and exam, discussed case, and agree with decision making with Dr Jackson Sleeping comfortably. No issues noted. Case management input greatly appreciated, and case discussed with case management as well. Vitals noted, in general he is resting in bed, no distress. Breathing unlabored no accessory muscle use good effort. Skin shows no rashes no pallor or icterus. Neuro without focal deficits. Very thin appearing. Hypotensioncertainly a case can be made for simply dehydration, malnutrition and failure to thrive, but also concern on sepsis given SIRS, concern on hypovolemia given his bump in creatinine, poor p.o. intake, and diuretic. While it is only in 1 tube, seeing gram-positive cocci in chains, with sepsis of initially uncertain sourceI suspect this is the source. To be clearI suspect his sepsis was due to gamma strep bacteremia present on admission, we are treating and this is improving. Given his overall palliative approach, it seems more harm than benefit to put him through an extensive work-up, but given that it will likely be fairly easy to treatcontinue antibiotics for now, and likely home on an oral beta-lactam. New diagnosis/previously unknown metastatic cancerpalliative discussing with family in regards to goals of care. Discussed with palliative team, input greatly appreciated. Metabolic encephalopathylikely due to above. Supportive care, reorientation as possible, family present at bedside will be helpful. Appears better today Pressure ulcer of coccyx, stage 2, POA vs evolving Deep tissue injury, POAwound care SNF/hospice Subjective Patient seen and evaluated at bedside this morning. No acute events reported overnight. Patient with no specific complaints or concerns this morning. Denies any pain, lightheadedness, or SOB. Review of Systems Review of Systems: Per HPI Physical Exam Physical Exam: GENERAL: Cachectic, frail appearing. Seated in bed in no acute distress. Appropriately interactive, pleasantly confused. HENT: Moist mucous membranes. Edentulous. RESPIRATORY: No acute respiratory distress. Normal respiratory effort. SKIN: Warm, dry. NEUROLOGIC: Moving all extremities. A/O x2 to person and place. Resident Activity Tracking Resident Involvement: Resident Care Provided Care Provided: Adult [facility] Medicine
[2022-09-18] MEDS: cefTRIAXone SODIUM 1,000 MG in DEXTROSE 5% AD-VAN 50 ML IV SCH (12:56)
--- NOTE | 2022-09-18 18:22 | Billing Data ---
Date of Service September 18, 2022 Coding Level of Care Code 99940 SUB INP/OBS CARE
[2022-09-18] MEDS: LATANOPROST 0.005% OP SOLN 2.5 ML BTL OP SCH (20:03)
--- NOTE | 2022-09-19 11:49 | Palliative Care Progress Note ---
Date of Service September 19, 2022 Assessment & Plan (1) Palliative care encounter: Plan: Mr. Rosas has been on comfort focused care and has not required any prn medications for symptom management. Plan was originally for him to go home to his daughter's house on hospice. However, she has two jobs and is not able to balance caring for him at home. Family had discussed SNF and he has a bed available at [facility]. However, he told me that he is going home. On further discussion with case management, his daughter, Brittney, had apparently contacted [facility] hospice yesterday about having hospice at home. I am not able to reach Brittney by phone. I spoke with her brother Efraín, who tells me that the family talked together yesterday and all are in agreement with SNF with hospice. Discussed with case management. Anticipate discharge to SNF with hospice. Admission and Anticipated Discharge Date Admission Date: September 13, 2022 Subjective Easily arousable. Answers questions. Takes sips of water. Denies pain, nausea, dyspnea or any discomfort. He has not had any prn medications for pain or symptom management. Review of Systems Review of Systems: ESAS Pain 0/3 Dyspnea 0/3 Nausea 0/3 Drowsiness 1/3 Physical Exam Constitutional: + cachectic ENMT: temporal wasting Respiratory: normal respiratory effort; no labored breathing Cardiovascular: Extremities: no edema Musculoskeletal: Extremities: + muscle atrophy Skin: warm and dry Results & Data Vital Signs (Past 12 Hours) Vital Signs Temp Pulse Resp BP Pulse Ox O2 Del Method 09/19/22 07:56 97.3 F L 115 H 18 84/56 L 97 Room Air PG Care Time/CCT Total # of Minutes Spent Total Time Spent: 45 Total Time Spent with Patient: Total time spent is greater than 50% in coordination of care (as documented) at patient's floor/unit and/or counseling patient: symptom management, goals of care, coordination of care. Coding Level of Care Code 19545 SUB INP/OBS CARE 2/35MIN Diagnoses Palliative care encounter Z51.5
[2022-09-19] MEDS: cefTRIAXone SODIUM 1,000 MG in DEXTROSE 5% AD-VAN 50 ML IV SCH (12:59)
--- NOTE | 2022-09-19 14:21 | Hospitalist Progress Note ---
Date of Service September 19, 2022 Assessment & Plan (1) Goals of care, counseling/discussion: Plan: -Family has reached a consensus thanks to discussions with them, the patient, and palliative care that they would all like to move forward with comfort measures and hospice care -Appreciate palliative medicine and their efforts to make the patient comfortable -Patient's brothers updated in patient room on 09/17 -Patient's son, Efraín, called and updated this morning at 0948; Efraín states that he and his sister, Brittney, will be coming in to visit this afternoon/discuss discharge planning -Appreciate case management's assistance in working with family for safe dispo planning; at this time, plan is for patient to be d/c to SNF w/ hospice services (2) 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 As above, goals of care are now toward comfort measures and no additional work-up for metastatic disease at this time (3) DVT (deep venous thrombosis): Plan: - Found on venous Doppler showing DVT in left common femoral vein, superficial femoral vein, popliteal vein, posterior tibial and peroneal vein. -Started on heparin without bolus, which has been discontinued due to comfort care measures -Suspect secondary to immobility and current metastatic disease (4) SIRS (systemic inflammatory response syndrome): Plan: -Elevated WBC with dehydration but given severely immunosuppressed and malnourished with positive culture showing Streptococcus species -We will continue antibiotics as able as these do provide comfort if treating an infection (5) Acute kidney injury: Plan: -Fluids have been discontinued, we will have the patient eat and drink as able. (6) A-fib: Plan: -Permanent, currently rate controlled (09/14/22) (7) Elevated bilirubin: Plan: No biliary dilatation on CT to suggest obstructive cause. Suspect due to metastatic disease. (8) CAD (coronary artery disease): (9) Altered mental state: Plan: -CT head negative for intracranial pathology -Suspect secondary to possible infection +/- ca. +/- uremia (10) Severe protein-calorie malnutrition: Plan VTE Prophylaxis - None Diet - Heart Healthy, Low Sodium, Minced and moist Disposition: continue admission on MedSurg; for discharge SNF w/ home hospice support Code Status: DNR/DNI, comfort Admission and Anticipated Discharge Date Admission Date: September 13, 2022 Supervising Physician Co-Signing Physician Notes ATTESTATION I also saw the patient and confirmed [place] portions of the history and exam. I agree with the impression and plan in the resident documentation, and as summarized below. Patient is on comfort care. Current plans are SNF with hospice. EXAM 84/, 115, 18, 36.3, 97% on room air He is sleeping but awakens to voice. Alert and oriented. He voices no complaints DATA No new data IMPRESSION & PLAN Metastatic disease, unknown primary Failure to thrive Continue comfort care; symptoms well managed at present SNF with hospice upon discharge Appreciate palliative consult Additional per resident documentation Subjective Patient seen at bedside this morning. No acute events reported overnight. Patient is comfortable and talkative this morning. Pleasant. No complaints voiced at this time. No other meaningful HPI at this time. Review of Systems Review of Systems: Per HPI Physical Exam Constitutional: + cachectic, + frail appearing, cooperative and + malnourished Eyes: + scleral abnormality Neck: normal visual inspection Respiratory: normal respiratory effort; no respiratory distress Cardiovascular: Rate/Rhythm: + irregularly irregular Extremities: + edema Gastrointestinal (Abdomen): normal bowel sounds, soft, nontender, no hepatosplenomegaly Musculoskeletal: Head/Neck/Chest: head atraumatic Skin: no rashes, warm and dry Neurologic: moves all extremities Results & Data Results & Data Vital Signs (Past 12 Hours) Vital Signs Temp Pulse Resp BP Pulse Ox O2 Del Method 09/19/22 07:56 36.3 C L 115 H 18 84/56 L 97 Room Air
[2022-09-19] MEDS: LATANOPROST 0.005% OP SOLN 2.5 ML BTL OP SCH (19:59)
--- NOTE | 2022-09-20 12:29 | Discharge Summary ---
Date of Service September 20, 2022 Admission HPI Per Admitting Provider Sean Malik is an 86 year old male who presents to the ER with generalized weakness and altered mental state. Unable o get any history from patient. History obtain from son (Efraín) and daughter (Brittney) at bedside. They report a gradual decline in mental status and weakness to the point he could not get up today with generalized weakness. They deny any facial droop, one sided weakness. His speech has become more difficult to understand but this has come with some generalized confusion. They report he recently was started on a water pill for te last two weeks and he has declined since starting that however it appears he was taking this from August 09 (or at least this is when it was picked up from the pharmacy. This was started for pedal edema suspected secondary to heart failure. He is not eating or drinking. No choking or coughing after eating. Principal Diagnosis Metastatic disease with unknown origin Discharge Exam Constitutional + cachectic, + altered mental status, + frail appearing, cooperative and + malnourished Eyes + scleral abnormality Neck normal visual inspection Respiratory normal respiratory effort; no respiratory distress Cardiovascular Rate/Rhythm: regular rate and + irregularly irregular Extremities: + edema Gastrointestinal (Abdomen) normal bowel sounds, soft, nontender, no hepatosplenomegaly Musculoskeletal Head/Neck/Chest: head atraumatic Skin no rashes, warm and dry Neurologic moves all extremities Discharge Data Allergies Allergy/AdvReac Type Severity Reaction Status Date / Time No Known Allergies Allergy Verified 09/13/22 11:41 Consultations 09/13/22 13:42 ED Decision to Admit Stat 09/13/22 21:48 Consult Palliative Care Routine Ordered Studies 09/13/22 12:28 CT Brain [CT head/brain wo con] Stat CT abd pelvis wo con Stat 09/13/22 14:27 US venous doppler LE LT Stat 09/13/22 23:16 CT for pulmonary embolism PE [CT angio chest PE protocol] Stat Hospital Course (1) Goals of care, counseling/discussion: -Family has reached a consensus thanks to discussions with them, the patient, and palliative care that they would all like to move forward with comfort measures and hospice care -Appreciate palliative medicine and their efforts to make the patient comfortable -Patient's brothers updated in patient room on 09/17 -Patient's son, Efraín, called and updated this morning at 0948; Efraín states that he and his sister, Brittney, will be coming in to visit this afternoon/discuss discharge planning -Appreciate case management's assistance in working with family for safe dispo planning; at this time, plan is for patient to be d/c to SNF w/ hospice services (2) 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 As above, goals of care are now toward comfort measures and no additional work-up for metastatic disease at this time (3) DVT (deep venous thrombosis): - Found on venous Doppler showing DVT in left common femoral vein, superficial femoral vein, popliteal vein, posterior tibial and peroneal vein. -Started on heparin without bolus, which has been discontinued due to comfort care measures -Suspect secondary to immobility and current metastatic disease (4) SIRS (systemic inflammatory response syndrome): -Elevated WBC with dehydration but given severely immunosuppressed and malnourished with positive culture showing Streptococcus species -We will continue antibiotics as able as these do provide comfort if treating an infection -Discharged on additional 5 days of cefdinir 300 Milligrams twice daily. (5) Acute kidney injury: -Fluids have been discontinued, we will have the patient eat and drink as able. (6) A-fib: -Permanent, currently rate controlled (09/14/22) (7) Elevated bilirubin: No biliary dilatation on CT to suggest obstructive cause. Suspect due to metastatic disease. (8) CAD (coronary artery disease): (9) Altered mental state: -CT head negative for intracranial pathology -Suspect secondary to possible infection +/- ca. +/- uremia (10) Severe protein-calorie malnutrition: Plan VTE Prophylaxis - None Diet - Heart Healthy, Low Sodium, Minced and moist Disposition: discharge SNF w/ home hospice support Code Status: DNR/DNI, comfort Total Time Total Time Spent Total Time Spent (In Minutes): 30 Discharge Plan Discharge Items Patient Disposition: Transfer Intermediate Fac Reason For Visit: METASTATIC DISEASE WITH UNKNOWN PRIMARY, CHRISTIANO Discharge Diagnosis: Metastatic disease with unknown primary Activity: Per Instructions section Non-emergency contact: Primary Care Provider Call non-emergency contact if: you have any medication questions and your pain is not controlled Follow-up/Referrals: Fadia Connelly CRNP [Primary Care Provider] - Diet: Regular Addtl Attending Provider Instructions: (1) Goals of care, counseling/discussion: Plan: -Family has reached a consensus thanks to discussions with them, the patient, and palliative care that they would all like to move forward with comfort measures and hospice care -Appreciate palliative medicine and their efforts to make the patient comfortable -Patient's brothers updated in patient room on 09/17 -Patient's son, Efraín, called and updated this morning at 0948; Efraín states that he and his sister, Brittney, will be coming in to visit this afternoon/discuss discharge planning -Appreciate case management's assistance in working with family for safe dispo planning;at this time, plan is for patient to be d/c to SNF w/ hospice services (2) 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 As above, goals of care are now toward comfort measures and no additional work-up for metastatic disease at this time (3) Bacteremia -Patient initially presenting with septic like symptoms with unknown source at the time -Initially started on Rocephin for broad-spectrum coverage due to high suspicion for bacterial infection -Chest x-ray was negative, urinalysis was negative but blood cultures positive 1 out of 4 for Streptococcus species -This indicates likely a skin source but no suspicious ulcers found even though the patient does have superficial wounds on the sacrum -Because this provides comfort and is treating an active infection, we will continue antibiotic treatment at discharge -Sent 5 days worth of cefdinir 300 mg twice daily to pharmacy. Defer continuation to hospice services. (4) DVT (deep venous thrombosis): Plan: - Found on venous Doppler showing DVT in left common femoral vein, superficial femoral vein, popliteal vein, posterior tibial and peroneal vein. -Started on heparin without bolus, which has been discontinued due to comfort care measures -Suspect secondary to immobility and current metastatic disease (5) SIRS (systemic inflammatory response syndrome): Plan: -Elevated WBC with dehydration but given severely immunosuppressed and malnourished with positive culture showing Streptococcus species -We will continue antibiotics as able as these do provide comfort if treating an infection (6) Acute kidney injury: Plan: -Fluids have been discontinued, we will have the patient eat and drink as able. (7) A-fib: Plan: -Permanent, currently rate controlled (09/14/22) (8) Elevated bilirubin: Plan: No biliary dilatation on CT to suggest obstructive cause. Suspect due to metastatic disease. (9) CAD (coronary artery disease): (10) Altered mental state: Plan: -CT head negative for intracranial pathology -Suspect secondary to possible infection +/- ca. +/- uremia (11) Severe protein-calorie malnutrition: Plan VTE Prophylaxis - None Diet - Heart Healthy, Low Sodium, Minced and moist Disposition:discharge SNF w/ home hospice support Code Status: DNR/DNI, comfort Pending Studies at Discharge: No Stand-Alone Forms: My [facility] Skilled Items Patient informed of condition?: Yes DNR: Yes Discharge Level of Care: Skilled Communicable Disease: No Discharge Prognosis: Deteriorating Lines: None Urinary Catheter: Yes Medications and DC Order Prescriptions: New cefdinir 300 mg capsule 300 mg PO BID 5 Days Qty: 10 0RF Discontinued atenolol 50 mg tablet 50 mg PO DAILY Qty: 90 3RF Metamucil (with sugar) 3 gram/7 gram powder 1 tbsp PO DAILY PRN (Reason: Constipation) Rx Instructions: 1 teaspoon with 8 0z of water every morning as needed per pt. triamterene-hydrochlorothiazid 37.5-25 mg tablet 1 tab PO DAILY Rx Instructions: 09/04/22. Take 1 tablet by mouth until swelling resolves, then take 1 tablet by mouth daily as needed for swelling. Eliquis 2.5 mg tablet 2.5 mg PO BID Qty: 180 3RF latanoprost 0.005 % drops 1 drp ophthalmic (eye) HS Discharge Orders: Discharge Order (Routine); Ordered 09/20/22 Ordered By: Tariq Nogueira Admission Data Admit Date/Time: 09/13/22 13:52 Attending Provider: Nadeem Russell Admit Provider: Jeb Ambrose Primary Care Provider: Fadia Connelly Other Providers: Jeb Ambrose ; Rea Okeefe ; [facility] ; [facility], ; [place] ; [facility] ; Tam Mayorga Other Interventions: Discharge Summary Assessment (RN) Last Done: 09/20/22 10:34 Supervising Physician Co-Signing Physician Notes ATTESTATION I also saw the patient and confirmed [place] portions of the history and exam. I agree with the impression and plan in the resident documentation, and as summarized below. This morning the patient was awake and alert. No complaints. Aware of pending transfer today. Patient is on comfort care. Current plans are SNF with hospice. EXAM 80/56, 113, 20, 34.7, 94% on room air Alert/conversational. Heart slightly tachycardic Respirations nonlabored DATA No new data IMPRESSION & PLAN Metastatic disease, unknown primary Failure to thrive Continue comfort care; symptoms well managed at present SNF with hospice upon discharge Appreciate palliative consult Additional diagnoses and instructions per resident documentation
== END 2022-09-20 11:01 | disposition hospice, inpatient (51) | DRG 871 ==
LOC: ED 09:09 → 2S 13:52 → SUATTDRO 13:52 → 2S 14:59 → 3E 09-15 18:24